=== PATIENT | male | born 1935 | race Caucasian/White ===

== ENCOUNTER 2017-08-18 17:43 | Observation (INO) ==
[2017-08-18] MEDS ORDERED: ASPIRIN 325 MG TABLET PO STA (18:37)
[2017-08-18] MEDS ORDERED: ASPIRIN 325 MG TABLET ONE (18:56)
[2017-08-18 19:05] LABS: Basophils % 0.3 % (0.0-0.8); Eosinophils % 0.1 % (0.00-10.9); Hemoglobin 11.5 GM/DL (14.0-18.0); Immature Granulocytes Absolute 0.55 #; Lymphocytes # 1.4 10*3/uL (1.4-4.0); Lymphocytes % 9.9 % (21.2-54.2); Mean Corpuscular HGB Conc 31.9 GM/DL (32-36); Mean Corpuscular Hemoglobin 28 PG (27-34); Mean Corpuscular Volume 87.6 FL (87-102); Mean Platelet Volume 11.1 FL (9.6-12.0); Monocytes # 2.7 10*3/uL (0.11-0.8); Monocytes % 19.8 % (1.7-12.7); Neutrophils % 65.9 % (38.7-73.9); Platelet Count 216 T/CUMM (130-400); Red Blood Count 4.11 MC/CUMM (3.8-5.5); Red Cell Distribution Width 19.7 % (9.3-17.3); White Blood Count 13.7 T/CUMM (4-12)
[2017-08-18 19:12] LABS: Apearance,Urine Slightly Hazy (Clear); Bilirubin,Urine Negative (Negative); Blood, Urine Moderate mg/dL (Negative); Glucose,Urine (UA) Negative (Negative); Hyaline Casts,Urine 5 /LPF (0-3); Ketones,Urine Negative (Negative); Mucus,Urine Occasional /LPF (Occasional); Nitrite,Urine Negative (Negative); Protein,Urine 100 MG/DL; RBC,Urine 195 /HPF (0-4); Urine Color Amber (Yellow); Urine Specific Gravity 1.018 (1.001-1.035); Urine Urobilinogen < 2.0 EU/DL (0.2-1.0); WBC,Urine 3 /HPF (0-6)
[2017-08-18 19:21] LABS: Albumin 2.6 G/DL (3.4-5.0); Bilirubin,Total 0.5 MG/DL (0.2-1.0); Calcium 8.3 MG/DL (8.5-10.1); Total Protein 6.5 G/DL (6.4-8.3)
[2017-08-18] MEDS ORDERED: ONDANSETRON 4 MG/2 ML VIAL IV PRN (20:12)
[2017-08-18 20:20] LABS: Lymphocytes 13 % (20-55); Platelet Estimate Adequate; Polychromasia Few; Segmented Neutrophils 78 % (50-85); Total Cells Counted 100
[2017-08-18] MEDS ORDERED: ALBUTEROL/IPRATROPIUM 3 ML NEB RESP TX PRN (20:26)
[2017-08-18] MEDS ORDERED: ZALEPLON 5 MG CAPSULE PO PRN (21:00)
[2017-08-18] MEDS: TAMSULOSIN 0.4 MG CAPSULE PO SCH (23:11)
[2017-08-18] MEDS: TEMAZEPAM 15 MG CAPSULE PO SCH (23:11)
[2017-08-18] MEDS: ALPRAZolam 0.5 MG TABLET PO PRN (23:13)
[2017-08-19] MEDS: NITROGLYCERIN 2% OINT 1 INCH/GM PACK TOP SCH ×5 (00:20→17:12)
[2017-08-19] MEDS: MORPHINE 2 MG/1 ML SYRINGE IV PRN ×4 (01:01→22:24)
[2017-08-19] MEDS ORDERED: ALBUTEROL/IPRATROPIUM 3 ML NEB RESP TX PRN (01:08)
[2017-08-19 01:56] LABS: Basophils # 0.1 10*3/uL (0.0-0.2); Basophils % 0.4 % (0.0-0.8); Eosinophils % 0.3 % (0.00-10.9); Hematocrit 34.6 VOL% (42.0-52.0); Immature Granulocytes % 3.8 %; Immature Granulocytes Absolute 0.49 #; Mean Corpuscular HGB Conc 31.8 GM/DL (32-36); Mean Corpuscular Hemoglobin 28 PG (27-34); Mean Corpuscular Volume 87.8 FL (87-102); Mean Platelet Volume 11.3 FL (9.6-12.0); Monocytes # 2.4 10*3/uL (0.11-0.8); Monocytes % 18.2 % (1.7-12.7); Neutrophils # 8.1 10*3/uL (1.4-7.4); Neutrophils % 62.3 % (38.7-73.9); Platelet Count 211 T/CUMM (130-400); Red Blood Count 3.94 MC/CUMM (3.8-5.5); Red Cell Distribution Width 19.5 % (9.3-17.3)
[2017-08-19 02:28] LABS: Alanine Aminotransferase 9 U/L (16-61); Albumin 2.5 G/DL (3.4-5.0); Alkaline Phosphatase 62 U/L (45-117); Aspartate Amino Transferase 10 U/L (0-37); Bilirubin,Total < 0.39 MG/DL (0.2-1.0); Blood Urea Nitrogen 17 MG/DL (7-18); Calcium 7.6 MG/DL (8.5-10.1); Glucose 116 MG/DL (74-106); Osmolality,Calculated 290.7 MOS/KG (273-304); Potassium 4.2 MMOL/L (3.5-5.1); Sodium 145 MMOL/L (136-145); Total Protein 5.6 G/DL (6.4-8.3)
[2017-08-19 02:31] LABS: Lymphocytes 15 % (20-55); Myelocytes 2 %; Segmented Neutrophils 67 % (50-85); Total Cells Counted 100
[2017-08-19 02:32] LABS: Hypochromasia 1+
[2017-08-19 02:33] LABS: Platelet Estimate Normal; Polychromasia Few
[2017-08-19 02:34] LABS: Elliptocytes Few; Microcytosis Slight
[2017-08-19 02:52] LABS: Risk Ratio 7.3; VLDL CHOLESTEROL 30.8 MG/DL
[2017-08-19] MEDS: IPRATROPIUM 500 MCG/2.5 ML NEB RESP TX SCH ×4 (07:00→19:06)
[2017-08-19] MEDS: ALPRAZolam 0.5 MG TABLET PO PRN ×2 (10:18→22:24)
[2017-08-19] MEDS: ASCORBIC ACID 500 MG TABLET PO SCH (10:18)
[2017-08-19] MEDS: PARoxetine 20 MG TABLET PO SCH (10:19)
[2017-08-19] MEDS: ASPIRIN EC 325 MG TABLET PO SCH (10:19)
[2017-08-19] MEDS: predniSONE 20 MG TABLET PO SCH ×2 (10:19→22:24)
[2017-08-19] MEDS: VITAMIN E 400 UNIT CAPSULE PO SCH (10:19)
[2017-08-19] MEDS: PANTOPRAZOLE 40 MG TABLET PO SCH (10:19)
[2017-08-19] MEDS: ENOXAPARIN 40 MG/0.4 ML SYRINGE SUBCUT SCH (10:20)
[2017-08-19] MEDS: TAMSULOSIN 0.4 MG CAPSULE PO SCH ×2 (10:20→22:24)
[2017-08-19 15:19] LABS: Apearance,Urine CLEAR (Clear); Bilirubin,Urine Negative (Negative); Blood, Urine Large mg/dL (Negative); Glucose,Urine (UA) Negative (Negative); Ketones,Urine Negative (Negative); Mucus,Urine Occasional /LPF (Occasional); Nitrite,Urine Negative (Negative); Protein,Urine Negative; RBC,Urine 75 /HPF (0-4); Urine Color Yellow (Yellow); Urine Specific Gravity 1.015 (1.001-1.035); WBC,Urine 5 /HPF (0-6)
[2017-08-19] MEDS: TEMAZEPAM 15 MG CAPSULE PO SCH (22:23)
[2017-08-20] MEDS: NITROGLYCERIN 2% OINT 1 INCH/GM PACK TOP SCH ×3 (00:05→12:40)
[2017-08-20 06:00] LABS: Basophils % 0.3 % (0.0-0.8); Eosinophils % 0.1 % (0.00-10.9); Hemoglobin 10.2 GM/DL (14.0-18.0); Immature Granulocytes % 2.6 %; Immature Granulocytes Absolute 0.37 #; Lymphocytes # 1.4 10*3/uL (1.4-4.0); Lymphocytes % 9.7 % (21.2-54.2); Mean Corpuscular HGB Conc 30.9 GM/DL (32-36); Mean Corpuscular Hemoglobin 28 PG (27-34); Mean Corpuscular Volume 89.9 FL (87-102); Monocytes # 1.5 10*3/uL (0.11-0.8); Monocytes % 10.3 % (1.7-12.7); Platelet Count 218 T/CUMM (130-400); Red Blood Count 3.67 MC/CUMM (3.8-5.5); Red Cell Distribution Width 19.1 % (9.3-17.3); White Blood Count 14.2 T/CUMM (4-12)
[2017-08-20 06:33] LABS: Calcium 7.9 MG/DL (8.5-10.1); Osmolality,Calculated 287.1 MOS/KG (273-304); Potassium 4.5 MMOL/L (3.5-5.1)
[2017-08-20] MEDS: IPRATROPIUM 500 MCG/2.5 ML NEB RESP TX SCH ×3 (07:27→14:19)
[2017-08-20] MEDS: VITAMIN E 400 UNIT CAPSULE PO SCH (09:41)
[2017-08-20] MEDS: PARoxetine 20 MG TABLET PO SCH (09:41)
[2017-08-20] MEDS: TAMSULOSIN 0.4 MG CAPSULE PO SCH (09:41)
[2017-08-20] MEDS: ENOXAPARIN 40 MG/0.4 ML SYRINGE SUBCUT SCH (09:41)
[2017-08-20] MEDS: ASPIRIN EC 325 MG TABLET PO SCH (09:41)
[2017-08-20] MEDS: PANTOPRAZOLE 40 MG TABLET PO SCH (09:42)
[2017-08-20] MEDS: predniSONE 20 MG TABLET PO SCH (09:42)
[2017-08-20] MEDS: ASCORBIC ACID 500 MG TABLET PO SCH (09:42)
[2017-08-20] MEDS: ALPRAZolam 0.5 MG TABLET PO PRN (09:43)
[2017-08-20 16:29] VITALS: BP 128/66
== END 2017-08-20 17:40 | disposition home or self-care (01) ==
LOC: EDUNIT# → EDBD → N.ED 17:43 → N.EDINP 17:43 → N.TELEN 22:08 → N.5E 08-19 17:58
PROVIDERS: ADMIT Internal Medicine; ATTEND Internal Medicine

== ENCOUNTER 2018-05-30 09:30 | Inpatient (IN) ==
[2018-05-30] MEDS ORDERED: ALBUTEROL/IPRATROPIUM 3 ML NEB RESP TX STA (09:49)
[2018-05-30] MEDS ORDERED: methylPREDNISolone SOD SUC 125 MG/2 ML VIAL IV STA (09:49)
[2018-05-30] MEDS ORDERED: LEVOFLOXACIN INJ 750 MG in PREMIX 1 EACH IV STA (09:49)
[2018-05-30] MEDS ORDERED: ONDANSETRON 4 MG/2 ML VIAL IV STA (09:49)
[2018-05-30 10:02] LABS: Basophils % 0.3 % (0.0-0.8); Eosinophils % 0.2 % (0.00-10.9); Hemoglobin 10.9 GM/DL (14.0-18.0); Immature Granulocytes % 1.7 %; Immature Granulocytes Absolute 0.16 #; Lymphocytes # 1.5 10*3/uL (1.4-4.0); Lymphocytes % 16.4 % (21.2-54.2); Mean Corpuscular HGB Conc 30.3 GM/DL (32-36); Mean Corpuscular Hemoglobin 26 PG (27-34); Mean Corpuscular Volume 86.7 FL (87-102); Mean Platelet Volume 12.2 FL (9.6-12.0); Monocytes # 1.1 10*3/uL (0.11-0.8); Monocytes % 11.7 % (1.7-12.7); Neutrophils # 6.4 10*3/uL (1.4-7.4); Neutrophils % 69.7 % (38.7-73.9); Platelet Count 135 T/CUMM (130-400); Red Blood Count 4.15 MC/CUMM (3.8-5.5); Red Cell Distribution Width 16.2 % (9.3-17.3); White Blood Count 9.2 T/CUMM (4-12)
[2018-05-30 10:08] LABS: INR 0.9; PT Patient Result 10.3 SECS; Partial Thromboplastin Time 26.2 SECS (0-40)
[2018-05-30 10:21] LABS: Alanine Aminotransferase 12 U/L (16-61); Alkaline Phosphatase 73 U/L (45-117); Aspartate Amino Transferase 11 U/L (0-37); Bilirubin,Total < 0.39 MG/DL (0.2-1.0); Calcium 9.1 MG/DL (8.5-10.1); Total Protein 7.4 G/DL (6.4-8.3)
[2018-05-30 10:22] LABS: Blood Urea Nitrogen 26 MG/DL (7-18); Glucose 106 MG/DL (74-106); Osmolality,Calculated 277.8 MOS/KG (273-304); Potassium 4.2 MMOL/L (3.5-5.1); Sodium 137 MMOL/L (136-145); Troponin I < 0.015 NG/ML (0.00-0.045)
[2018-05-30] MEDS ORDERED: LEVOFLOXACIN INJ 750 MG in PREMIX 1 EACH IV SCH (12:30)
[2018-05-30] MEDS ORDERED: ONDANSETRON 4 MG/2 ML VIAL IV PRN (13:34)
[2018-05-30] MEDS ORDERED: ACETAMINOPHEN 325 MG TABLET PO PRN (13:34)
[2018-05-30] MEDS ORDERED: guaiFENesin/DM ER 600-30 MG TABLET PO PRN (13:34)
[2018-05-30] MEDS ORDERED: ZALEPLON 5 MG CAPSULE PO PRN (13:34)
[2018-05-30] MEDS ORDERED: NICOTINE 21 MG/24 HR PATCH TRANSDERM PRN (13:34)
[2018-05-30] MEDS ORDERED: ALBUTEROL 2.5 MG/3 ML NEB RESP TX PRN (13:36)
[2018-05-30] MEDS: ALBUTEROL/IPRATROPIUM 3 ML NEB RESP TX SCH ×2 (14:20→19:01)
[2018-05-30] MEDS: LEVOFLOXACIN INJ 750 MG in PREMIX 1 EACH IV SCH (14:42)
[2018-05-30 14:54] LABS: ABG Base Excess 9.8 MMOL/L (-2.5-2.5); ABG HCO3 33.4 MMOL/L (20-26); ABG Oxygen Saturation 88.1 % (95-100); ABG PH 7.314 (7.35-7.45); ABG TCO2 35.7 MMOL/L (23-27)
[2018-05-30 15:09] LABS: ABG PCO2 77.3 MM HG (35-48)
[2018-05-30] MEDS: HEPARIN 5,000 UNIT/1 ML VIAL SUBCUT SCH (15:44)
[2018-05-30] MEDS ORDERED: IPRATROPIUM 500 MCG/2.5 ML NEB RESP TX PRN (17:00)
[2018-05-30] MEDS: methylPREDNISolone SOD SUC 40 MG/1 ML VIAL IV SCH (17:39)
[2018-05-30] MEDS ORDERED: [UNRECOGNIZED DRUG - OTHER] PO SCH (21:00)
[2018-05-30] MEDS: BUDESONIDE/FORMOTEROL 160-4.5 INHALER 6 GM INH SCH (21:40)
[2018-05-30] MEDS: DOCUSATE SODIUM 100 MG CAPSULE PO SCH (21:40)
[2018-05-30] MEDS: TAMSULOSIN 0.4 MG CAPSULE PO SCH (21:40)
[2018-05-30] MEDS: LATANOPROST 0.005% OPH SOLN 2.5 ML BOTTLE LEFT EYE SCH (21:41)
[2018-05-30] MEDS: DONEPEZIL 5 MG TABLET PO SCH (21:41)
[2018-05-30] MEDS: guaiFENesin/DM ER 600-30 MG TABLET PO SCH (21:41)
[2018-05-30] MEDS: ALPRAZolam 0.5 MG TABLET PO SCH (21:41)
[2018-05-31] MEDS: ALBUTEROL/IPRATROPIUM 3 ML NEB RESP TX SCH ×4 (00:47→19:29)
[2018-05-31] MEDS: HEPARIN 5,000 UNIT/1 ML VIAL SUBCUT SCH ×4 (00:57→23:55)
[2018-05-31] MEDS: methylPREDNISolone SOD SUC 40 MG/1 ML VIAL IV SCH ×3 (05:06→20:39)
[2018-05-31 06:00] LABS: Basophils % 0.3 % (0.0-0.8); Hematocrit 34.4 VOL% (42.0-52.0); Hemoglobin 10.4 GM/DL (14.0-18.0); Immature Granulocytes % 5.9 %; Immature Granulocytes Absolute 0.34 #; Lymphocytes # 0.7 10*3/uL (1.4-4.0); Lymphocytes % 12.7 % (21.2-54.2); Mean Corpuscular HGB Conc 30.2 GM/DL (32-36); Mean Corpuscular Hemoglobin 26 PG (27-34); Mean Corpuscular Volume 86.6 FL (87-102); Mean Platelet Volume 12.2 FL (9.6-12.0); Monocytes # 0.2 10*3/uL (0.11-0.8); Neutrophils # 4.5 10*3/uL (1.4-7.4); Neutrophils % 78.1 % (38.7-73.9); Platelet Count 137 T/CUMM (130-400); Red Blood Count 3.97 MC/CUMM (3.8-5.5); White Blood Count 5.7 T/CUMM (4-12)
[2018-05-31 06:35] LABS: Albumin 2.7 G/DL (3.4-5.0); Bilirubin,Total 0.8 MG/DL (0.2-1.0); Calcium 8.7 MG/DL (8.5-10.1); Osmolality,Calculated 280.8 MOS/KG (273-304); Potassium 4.7 MMOL/L (3.5-5.1); Total Protein 6.7 G/DL (6.4-8.3)
[2018-05-31 07:50] LABS: ABG Base Excess 11.8 MMOL/L (-2.5-2.5); ABG HCO3 35.3 MMOL/L (20-26); ABG PH 7.368 (7.35-7.45); ABG PO2 50.9 MM HG (80-95); ABG TCO2 36.3 MMOL/L (23-27); Allen Test Positive
[2018-05-31 09:45] LABS: Hypochromasia 2+; Lymphocytes 12 % (20-55); Polychromasia Slight; Segmented Neutrophils 86 % (50-85); Total Cells Counted 100
[2018-05-31 09:46] LABS: Platelet Estimate Decreased; Schistocytes Slight
[2018-05-31] MEDS: BUDESONIDE/FORMOTEROL 160-4.5 INHALER 6 GM INH SCH ×2 (09:48→20:40)
[2018-05-31] MEDS: TAMSULOSIN 0.4 MG CAPSULE PO SCH ×2 (09:50→20:39)
[2018-05-31] MEDS: buPROPion SR 150 MG TABLET PO SCH (09:50)
[2018-05-31] MEDS: amLODIPine 5 MG TABLET PO SCH (09:50)
[2018-05-31] MEDS: ALPRAZolam 0.5 MG TABLET PO SCH ×3 (09:50→20:38)
[2018-05-31] MEDS: DOCUSATE SODIUM 100 MG CAPSULE PO SCH ×2 (09:50→20:38)
[2018-05-31] MEDS: PANTOPRAZOLE 40 MG TABLET PO SCH (09:50)
[2018-05-31] MEDS: ASPIRIN CHEW 81 MG TABLET PO SCH (09:51)
[2018-05-31] MEDS: guaiFENesin/DM ER 600-30 MG TABLET PO SCH ×2 (09:51→20:39)
[2018-05-31] MEDS: FINASTERIDE 5 MG TABLET PO SCH (09:51)
[2018-05-31 10:35] LABS: Apearance,Urine CLEAR (Clear); Bilirubin,Urine Negative (Negative); Blood, Urine Negative (Negative); Glucose,Urine (UA) Negative (Negative); Ketones,Urine Negative (Negative); Mucus,Urine Occasional /LPF (Occasional); Nitrite,Urine Negative (Negative); Protein,Urine Negative; RBC,Urine 2 /HPF (0-4); Squamous Epithelial Cell,Urine Occasional /HPF (0-10); Urine Color Yellow (Yellow); Urine Specific Gravity 1.023 (1.001-1.035); Urine Urobilinogen < 2.0 EU/DL (0.2-1.0); WBC,Urine 1 /HPF (0-6)
[2018-05-31] MEDS: LEVOFLOXACIN INJ 750 MG in PREMIX 1 EACH IV SCH (12:02)
[2018-05-31] MEDS: DONEPEZIL 5 MG TABLET PO SCH (20:39)
[2018-05-31] MEDS: LATANOPROST 0.005% OPH SOLN 2.5 ML BOTTLE LEFT EYE SCH (20:39)
[2018-06-01] MEDS: ALBUTEROL/IPRATROPIUM 3 ML NEB RESP TX SCH ×4 (00:15→19:43)
[2018-06-01] MEDS ORDERED: predniSONE 20 MG TABLET PO ONE (01:17)
[2018-06-01 05:06] LABS: ABG PCO2 69.4 MM HG (35-48)
[2018-06-01 05:29] LABS: Basophils % 0.2 % (0.0-0.8); Eosinophils % 0.1 % (0.00-10.9); Hematocrit 33.2 VOL% (42.0-52.0); Hemoglobin 10.1 GM/DL (14.0-18.0); Immature Granulocytes % 2.1 %; Immature Granulocytes Absolute 0.33 #; Lymphocytes # 1.4 10*3/uL (1.4-4.0); Lymphocytes % 9.1 % (21.2-54.2); Mean Corpuscular HGB Conc 30.4 GM/DL (32-36); Mean Corpuscular Hemoglobin 26 PG (27-34); Mean Corpuscular Volume 85.8 FL (87-102); Mean Platelet Volume 12.4 FL (9.6-12.0); Monocytes # 3.2 10*3/uL (0.11-0.8); Monocytes % 20.4 % (1.7-12.7); Neutrophils # 10.6 10*3/uL (1.4-7.4); Neutrophils % 68.1 % (38.7-73.9); Platelet Count 139 T/CUMM (130-400); Red Blood Count 3.87 MC/CUMM (3.8-5.5); Red Cell Distribution Width 15.9 % (9.3-17.3); White Blood Count 15.5 T/CUMM (4-12)
[2018-06-01 05:49] LABS: Albumin 2.8 G/DL (3.4-5.0); Bilirubin,Total 0.6 MG/DL (0.2-1.0); Calcium 8.5 MG/DL (8.5-10.1); Potassium 3.9 MMOL/L (3.5-5.1); Total Protein 6.5 G/DL (6.4-8.3)
[2018-06-01 06:02] LABS: Hypochromasia 1+; Lymphocytes 9 % (20-55); Ovalocytes Slight; Platelet Estimate Normal; Segmented Neutrophils 77 % (50-85); Total Cells Counted 100
[2018-06-01] MEDS: HEPARIN 5,000 UNIT/1 ML VIAL SUBCUT SCH ×2 (06:27→16:36)
[2018-06-01] MEDS ORDERED: ERGOCALCIFEROL 50,000 UNIT CAPSULE PO SCH (09:00)
[2018-06-01] MEDS: ASPIRIN CHEW 81 MG TABLET PO SCH (10:07)
[2018-06-01] MEDS: DOCUSATE SODIUM 100 MG CAPSULE PO SCH ×2 (10:08→21:39)
[2018-06-01] MEDS: guaiFENesin/DM ER 600-30 MG TABLET PO SCH ×2 (10:08→21:39)
[2018-06-01] MEDS: TAMSULOSIN 0.4 MG CAPSULE PO SCH ×2 (10:08→21:39)
[2018-06-01] MEDS: amLODIPine 5 MG TABLET PO SCH (10:08)
[2018-06-01] MEDS: PANTOPRAZOLE 40 MG TABLET PO SCH (10:09)
[2018-06-01] MEDS: BUDESONIDE/FORMOTEROL 160-4.5 INHALER 6 GM INH SCH ×2 (10:09→21:40)
[2018-06-01] MEDS: FINASTERIDE 5 MG TABLET PO SCH (10:09)
[2018-06-01] MEDS: ALPRAZolam 0.5 MG TABLET PO SCH ×3 (10:10→21:39)
[2018-06-01] MEDS: buPROPion SR 150 MG TABLET PO SCH (10:10)
[2018-06-01] MEDS: predniSONE 20 MG TABLET PO SCH (10:11)
[2018-06-01] MEDS: CEFDINIR 300 MG CAPSULE PO SCH ×2 (10:40→21:39)
[2018-06-01] MEDS: DONEPEZIL 5 MG TABLET PO SCH (21:39)
[2018-06-01] MEDS: LATANOPROST 0.005% OPH SOLN 2.5 ML BOTTLE LEFT EYE SCH (21:40)
[2018-06-02] MEDS: ALBUTEROL/IPRATROPIUM 3 ML NEB RESP TX SCH ×4 (00:22→19:33)
[2018-06-02] MEDS: HEPARIN 5,000 UNIT/1 ML VIAL SUBCUT SCH ×3 (01:21→17:33)
[2018-06-02 06:39] LABS: Basophils % 0.1 % (0.0-0.8); Hematocrit 33.6 VOL% (42.0-52.0); Hemoglobin 10.3 GM/DL (14.0-18.0); Immature Granulocytes % 5.1 %; Immature Granulocytes Absolute 0.42 #; Lymphocytes % 11.8 % (21.2-54.2); Mean Corpuscular HGB Conc 30.7 GM/DL (32-36); Mean Corpuscular Hemoglobin 26 PG (27-34); Mean Corpuscular Volume 85.7 FL (87-102); Mean Platelet Volume 13.4 FL (9.6-12.0); Monocytes # 0.9 10*3/uL (0.11-0.8); Monocytes % 11.2 % (1.7-12.7); Neutrophils % 71.8 % (38.7-73.9); Platelet Count 127 T/CUMM (130-400); Red Blood Count 3.92 MC/CUMM (3.8-5.5); Red Cell Distribution Width 16.3 % (9.3-17.3); White Blood Count 8.3 T/CUMM (4-12)
[2018-06-02 06:56] LABS: Alanine Aminotransferase 9 U/L (16-61); Albumin 2.5 G/DL (3.4-5.0); Alkaline Phosphatase 52 U/L (45-117); Aspartate Amino Transferase 9 U/L (0-37); Bilirubin,Total < 0.39 MG/DL (0.2-1.0); Blood Urea Nitrogen 36 MG/DL (7-18); Calcium 8.2 MG/DL (8.5-10.1); Glucose 97 MG/DL (74-106); Osmolality,Calculated 277.1 MOS/KG (273-304); Potassium 4.5 MMOL/L (3.5-5.1); Sodium 135 MMOL/L (136-145); Total Protein 6.8 G/DL (6.4-8.3)
[2018-06-02 07:21] LABS: Anisocytosis Slight; Lymphocytes 15 % (20-55); Platelet Estimate Adequate; Poikilocytosis Slight; Segmented Neutrophils 74 % (50-85); Total Cells Counted 100
[2018-06-02 07:22] LABS: Giant Platelets Few; Hypochromasia Slight
[2018-06-02] MEDS: DOCUSATE SODIUM 100 MG CAPSULE PO SCH ×2 (08:32→22:12)
[2018-06-02] MEDS: ALPRAZolam 0.5 MG TABLET PO SCH ×3 (08:32→22:12)
[2018-06-02] MEDS: predniSONE 20 MG TABLET PO SCH (08:32)
[2018-06-02] MEDS: guaiFENesin/DM ER 600-30 MG TABLET PO SCH ×2 (08:32→22:12)
[2018-06-02] MEDS: TAMSULOSIN 0.4 MG CAPSULE PO SCH ×2 (08:32→22:12)
[2018-06-02] MEDS: ASPIRIN CHEW 81 MG TABLET PO SCH (08:33)
[2018-06-02] MEDS: amLODIPine 5 MG TABLET PO SCH (08:33)
[2018-06-02] MEDS: FINASTERIDE 5 MG TABLET PO SCH (08:33)
[2018-06-02] MEDS: buPROPion SR 150 MG TABLET PO SCH (08:33)
[2018-06-02] MEDS: CEFDINIR 300 MG CAPSULE PO SCH ×2 (08:33→22:12)
[2018-06-02] MEDS: BUDESONIDE/FORMOTEROL 160-4.5 INHALER 6 GM INH SCH ×2 (08:33→22:13)
[2018-06-02] MEDS: PANTOPRAZOLE 40 MG TABLET PO SCH (08:33)
[2018-06-02] MEDS: LATANOPROST 0.005% OPH SOLN 2.5 ML BOTTLE LEFT EYE SCH (22:11)
[2018-06-02] MEDS: DONEPEZIL 5 MG TABLET PO SCH (22:12)
[2018-06-03] MEDS: ALBUTEROL/IPRATROPIUM 3 ML NEB RESP TX SCH ×2 (00:23→07:50)
[2018-06-03] MEDS: HEPARIN 5,000 UNIT/1 ML VIAL SUBCUT SCH ×2 (00:37→10:14)
[2018-06-03 07:43] VITALS: BP 123/66
[2018-06-03] MEDS: CEFDINIR 300 MG CAPSULE PO SCH (10:13)
[2018-06-03] MEDS: amLODIPine 5 MG TABLET PO SCH (10:13)
[2018-06-03] MEDS: buPROPion SR 150 MG TABLET PO SCH (10:13)
[2018-06-03] MEDS: TAMSULOSIN 0.4 MG CAPSULE PO SCH (10:13)
[2018-06-03] MEDS: predniSONE 20 MG TABLET PO SCH (10:13)
[2018-06-03] MEDS: guaiFENesin/DM ER 600-30 MG TABLET PO SCH (10:13)
[2018-06-03] MEDS: DOCUSATE SODIUM 100 MG CAPSULE PO SCH (10:14)
[2018-06-03] MEDS: ALPRAZolam 0.5 MG TABLET PO SCH (10:14)
[2018-06-03] MEDS: ASPIRIN CHEW 81 MG TABLET PO SCH (10:14)
[2018-06-03] MEDS: PANTOPRAZOLE 40 MG TABLET PO SCH (10:14)
[2018-06-03] MEDS: BUDESONIDE/FORMOTEROL 160-4.5 INHALER 6 GM INH SCH (10:17)
[2018-06-03] MEDS: FINASTERIDE 5 MG TABLET PO SCH (10:17)
== END 2018-06-03 11:55 | DRG 194 ==
LOC: EDBD → EDUNIT# → N.ED 09:30 → N.EDINP 12:13 → N.2E 13:57
PROVIDERS: ADMIT Internal Medicine; ATTEND Internal Medicine

== ENCOUNTER 2018-08-03 17:38 | Inpatient (IN) ==
[2018-08-03] MEDS ORDERED: SODIUM CHLORIDE 0.9% 1,000 ML IV STA ×2 (18:29→19:41)
[2018-08-03 18:50] LABS: Basophils # 0.1 10*3/uL (0.0-0.2); Basophils % 0.3 % (0.0-0.8); Hematocrit 40.1 VOL% (42.0-52.0); Hemoglobin 12.1 GM/DL (14.0-18.0); Immature Granulocytes % 4.1 %; Immature Granulocytes Absolute 1.56 #; Lymphocytes # 0.4 10*3/uL (1.4-4.0); Lymphocytes % 1.1 % (21.2-54.2); Mean Corpuscular HGB Conc 30.2 GM/DL (32-36); Mean Corpuscular Hemoglobin 26 PG (27-34); Mean Corpuscular Volume 87.6 FL (87-102); Mean Platelet Volume 11.4 FL (9.6-12.0); Monocytes # 4.9 10*3/uL (0.11-0.8); Monocytes % 12.7 % (1.7-12.7); Neutrophils # 31.3 10*3/uL (1.4-7.4); Neutrophils % 81.8 % (38.7-73.9); Platelet Count 120 T/CUMM (130-400); Red Blood Count 4.58 MC/CUMM (3.8-5.5); Red Cell Distribution Width 15.7 % (9.3-17.3); White Blood Count 38.2 T/CUMM (4-12)
[2018-08-03 19:09] LABS: Alanine Aminotransferase 14 U/L (16-61); Albumin 3.1 G/DL (3.4-5.0); Alkaline Phosphatase 79 U/L (45-117); Aspartate Amino Transferase 14 U/L (0-37); Blood Urea Nitrogen 14 MG/DL (7-18); Calcium 8.9 MG/DL (8.5-10.1); Glucose 108 MG/DL (74-106); Osmolality,Calculated 276.7 MOS/KG (273-304); Potassium 3.9 MMOL/L (3.5-5.1); Sodium 138 MMOL/L (136-145); Total Protein 7.1 G/DL (6.4-8.3)
[2018-08-03] MEDS ORDERED: VANCOMYCIN INJ 1,000 MG in SODIUM CHLORIDE 0.9% 250 ML IV STA (19:40)
[2018-08-03] MEDS ORDERED: CEFEPIME 2,000 MG in SODIUM CHLORIDE 0.9% 100 ML IV STA (19:40)
[2018-08-03 19:57] LABS: Apearance,Urine Slightly Hazy (Clear); Blood, Urine Negative (Negative); Glucose,Urine (UA) Negative (Negative); Hyaline Casts,Urine 51 /LPF (0-3); Ketones,Urine Negative (Negative); Mucus,Urine Many /LPF (Occasional); Nitrite,Urine Negative (Negative); Protein,Urine 30 MG/DL; RBC,Urine 3 /HPF (0-4); Squamous Epithelial Cell,Urine Occasional /HPF (0-10); Urine Color Amber (Yellow); Urine Specific Gravity 1.018 (1.001-1.035); WBC,Urine 3 /HPF (0-6)
[2018-08-03 19:58] LABS: Lymphocytes 6 % (20-55); Segmented Neutrophils 80 % (50-85); Total Cells Counted 100
[2018-08-03 19:58] LABS: Bilirubin,Urine Small mg/dL (Negative)
[2018-08-03 20:02] LABS: Anisocytosis 1+; Hypochromasia Slight; Poikilocytosis Slight
[2018-08-03 20:03] LABS: Ovalocytes Slight; Platelet Estimate Decreased
[2018-08-03] MEDS ORDERED: ACETAMINOPHEN 325 MG TABLET PO PRN (20:12)
[2018-08-03] MEDS ORDERED: ONDANSETRON 4 MG/2 ML VIAL IV PRN (20:12)
[2018-08-03] MEDS: DEXTROSE 5% NACL 0.9% 1,000 ML IV SCH (21:34)
[2018-08-03] MEDS: DOCUSATE SODIUM 100 MG CAPSULE PO SCH (21:37)
[2018-08-04 04:28] LABS: Basophils # 0.1 10*3/uL (0.0-0.2); Basophils % 0.3 % (0.0-0.8); Hematocrit 31.9 VOL% (42.0-52.0); Hemoglobin 9.5 GM/DL (14.0-18.0); Immature Granulocytes % 3.1 %; Immature Granulocytes Absolute 1.22 #; Lymphocytes % 5.1 % (21.2-54.2); Mean Corpuscular HGB Conc 29.8 GM/DL (32-36); Mean Corpuscular Hemoglobin 27 PG (27-34); Mean Corpuscular Volume 89.4 FL (87-102); Mean Platelet Volume 11.7 FL (9.6-12.0); Monocytes # 5.5 10*3/uL (0.11-0.8); Neutrophils # 30.6 10*3/uL (1.4-7.4); Neutrophils % 77.5 % (38.7-73.9); Platelet Count 148 T/CUMM (130-400); Red Blood Count 3.57 MC/CUMM (3.8-5.5); Red Cell Distribution Width 15.5 % (9.3-17.3); White Blood Count 39.5 T/CUMM (4-12)
[2018-08-04] MEDS ORDERED: ALPRAZolam 0.5 MG TABLET PO ONE (04:36)
[2018-08-04] MEDS: CEFEPIME 2,000 MG in SODIUM CHLORIDE 0.9% 100 ML IV SCH ×3 (05:00→20:44)
[2018-08-04 05:02] LABS: Alanine Aminotransferase < 9 U/L (16-61); Albumin 2.4 G/DL (3.4-5.0); Alkaline Phosphatase 58 U/L (45-117); Aspartate Amino Transferase 11 U/L (0-37); Blood Urea Nitrogen 18 MG/DL (7-18); Calcium 7.7 MG/DL (8.5-10.1); Glucose 99 MG/DL (74-106); Potassium 3.6 MMOL/L (3.5-5.1); Sodium 143 MMOL/L (136-145); Total Protein 5.6 G/DL (6.4-8.3)
[2018-08-04 05:11] LABS: Band Neutrophils 1 % (0-10); Lymphocytes 4 % (20-55); Metamyelocytes 2 %; Platelet Estimate Decreased; Segmented Neutrophils 88 % (50-85); Total Cells Counted 100
[2018-08-04 05:12] LABS: Polychromasia Few
[2018-08-04] MEDS: DEXTROSE 5% NACL 0.9% 1,000 ML IV SCH (05:31)
[2018-08-04] MEDS: DOCUSATE SODIUM 100 MG CAPSULE PO SCH ×2 (08:30→20:51)
[2018-08-04] MEDS: ALPRAZolam 0.5 MG TABLET PO SCH ×3 (08:30→20:51)
[2018-08-04] MEDS ORDERED: PANTOPRAZOLE 40 MG TABLET PO SCH (09:00)
[2018-08-04] MEDS: VANCOMYCIN INJ 1,250 MG in SODIUM CHLORIDE 0.9% 250 ML IV SCH ×2 (10:01→20:45)
[2018-08-04] MEDS ORDERED: MAGNESIUM HYDROXIDE SUSP 30 ML UDCUP PO PRN (10:20)
[2018-08-04] MEDS ORDERED: IPRATROPIUM 500 MCG/2.5 ML NEB RESP TX PRN (10:30)
[2018-08-04] MEDS: BUDESONIDE 0.25 MG/2 ML NEB RESP TX SCH ×2 (10:40→19:31)
[2018-08-04] MEDS: ALBUTEROL/IPRATROPIUM 3 ML NEB RESP TX SCH ×2 (10:40→19:31)
[2018-08-04] MEDS: SODIUM CHLORIDE 0.45% 1,000 ML IV SCH ×3 (11:29→23:17)
[2018-08-04] MEDS: methylPREDNISolone SOD SUC 40 MG/1 ML VIAL IV SCH ×2 (12:38→19:04)
[2018-08-04] MEDS: buPROPion SR 150 MG TABLET PO SCH (12:39)
[2018-08-04] MEDS: ASPIRIN CHEW 81 MG TABLET PO SCH (12:39)
[2018-08-04] MEDS: guaiFENesin/DM ER 600-30 MG TABLET PO SCH ×2 (12:39→20:51)
[2018-08-04] MEDS: SKIN HEALING OINT (AQUAPHOR) 50 GM TUBE TOP SCH (15:52)
[2018-08-04] MEDS: DONEPEZIL 5 MG TABLET PO SCH (20:51)
[2018-08-04] MEDS: LATANOPROST 0.005% OPH SOLN 2.5 ML BOTTLE LEFT EYE SCH (20:51)
[2018-08-05] MEDS: ALBUTEROL/IPRATROPIUM 3 ML NEB RESP TX SCH ×4 (02:26→19:15)
[2018-08-05] MEDS: methylPREDNISolone SOD SUC 40 MG/1 ML VIAL IV SCH ×3 (04:34→20:55)
[2018-08-05] MEDS: CEFEPIME 2,000 MG in SODIUM CHLORIDE 0.9% 100 ML IV SCH ×2 (04:34→12:45)
[2018-08-05 04:36] LABS: Basophils % 0.1 % (0.0-0.8); Hematocrit 31.5 VOL% (42.0-52.0); Hemoglobin 9.4 GM/DL (14.0-18.0); Immature Granulocytes % 2.9 %; Immature Granulocytes Absolute 0.59 #; Lymphocytes # 0.8 10*3/uL (1.4-4.0); Mean Corpuscular HGB Conc 29.8 GM/DL (32-36); Mean Corpuscular Hemoglobin 26 PG (27-34); Mean Platelet Volume 12.3 FL (9.6-12.0); Monocytes # 0.7 10*3/uL (0.11-0.8); Monocytes % 3.2 % (1.7-12.7); Neutrophils # 18.3 10*3/uL (1.4-7.4); Neutrophils % 89.8 % (38.7-73.9); Platelet Count 141 T/CUMM (130-400); Red Blood Count 3.62 MC/CUMM (3.8-5.5); Red Cell Distribution Width 15.4 % (9.3-17.3); White Blood Count 20.4 T/CUMM (4-12)
[2018-08-05 04:51] LABS: Calcium 7.8 MG/DL (8.5-10.1); Osmolality,Calculated 281.5 MOS/KG (273-304); Potassium 3.9 MMOL/L (3.5-5.1)
[2018-08-05 05:07] LABS: Hypochromasia 1+; Lymphocytes 6 % (20-55); Ovalocytes Slight; Platelet Estimate Adequate; Segmented Neutrophils 90 % (50-85); Total Cells Counted 100
[2018-08-05] MEDS ORDERED: MAGNESIUM SULF RIDER 2 GM in PREMIX 1 EACH IV PRN (05:10)
[2018-08-05] MEDS ORDERED: MAGNESIUM SULF RIDER 2 GM in PREMIX 1 EACH IV ONE (06:54)
[2018-08-05] MEDS: BUDESONIDE 0.25 MG/2 ML NEB RESP TX SCH ×2 (07:33→19:15)
[2018-08-05] MEDS: ASPIRIN CHEW 81 MG TABLET PO SCH (09:13)
[2018-08-05] MEDS: ALPRAZolam 0.5 MG TABLET PO SCH ×4 (09:14→21:00)
[2018-08-05] MEDS: buPROPion SR 150 MG TABLET PO SCH (09:14)
[2018-08-05] MEDS: DOCUSATE SODIUM 100 MG CAPSULE PO SCH ×2 (09:14→20:57)
[2018-08-05] MEDS: guaiFENesin/DM ER 600-30 MG TABLET PO SCH ×2 (09:14→20:57)
[2018-08-05] MEDS: SODIUM CHLORIDE 0.45% 1,000 ML IV SCH ×2 (09:22→20:49)
[2018-08-05] MEDS: VANCOMYCIN INJ 1,250 MG in SODIUM CHLORIDE 0.9% 250 ML IV SCH ×2 (09:25→20:59)
[2018-08-05] MEDS: SKIN HEALING OINT (AQUAPHOR) 50 GM TUBE TOP SCH (12:52)
[2018-08-05] MEDS ORDERED: FUROSEMIDE 20 MG/2 ML VIAL IV ONE (20:07)
[2018-08-05] MEDS: CEFEPIME 2,000 MG in SYRINGE 1 EACH IV SCH (20:50)
[2018-08-05] MEDS: DONEPEZIL 5 MG TABLET PO SCH (20:57)
[2018-08-05] MEDS: LATANOPROST 0.005% OPH SOLN 2.5 ML BOTTLE LEFT EYE SCH (21:01)
[2018-08-06] MEDS: ALBUTEROL/IPRATROPIUM 3 ML NEB RESP TX SCH ×4 (01:10→18:59)
[2018-08-06 04:59] LABS: Basophils % 0.2 % (0.0-0.8); Hematocrit 34.1 VOL% (42.0-52.0); Hemoglobin 10.4 GM/DL (14.0-18.0); Immature Granulocytes % 3.4 %; Lymphocytes # 0.8 10*3/uL (1.4-4.0); Lymphocytes % 5.3 % (21.2-54.2); Mean Corpuscular HGB Conc 30.5 GM/DL (32-36); Mean Corpuscular Hemoglobin 26 PG (27-34); Mean Corpuscular Volume 85.9 FL (87-102); Mean Platelet Volume 11.7 FL (9.6-12.0); Monocytes # 1.2 10*3/uL (0.11-0.8); Monocytes % 8.4 % (1.7-12.7); Neutrophils # 12.1 10*3/uL (1.4-7.4); Neutrophils % 82.7 % (38.7-73.9); Platelet Count 155 T/CUMM (130-400); Red Blood Count 3.97 MC/CUMM (3.8-5.5); Red Cell Distribution Width 15.5 % (9.3-17.3); White Blood Count 14.6 T/CUMM (4-12)
[2018-08-06] MEDS: methylPREDNISolone SOD SUC 40 MG/1 ML VIAL IV SCH ×3 (05:02→21:03)
[2018-08-06] MEDS: CEFEPIME 2,000 MG in SYRINGE 1 EACH IV SCH ×3 (05:02→21:00)
[2018-08-06 05:14] LABS: Calcium 7.9 MG/DL (8.5-10.1); Osmolality,Calculated 280.7 MOS/KG (273-304); Potassium 3.8 MMOL/L (3.5-5.1)
[2018-08-06] MEDS: SODIUM CHLORIDE 0.45% 1,000 ML IV SCH ×2 (07:33→18:23)
[2018-08-06] MEDS: BUDESONIDE 0.25 MG/2 ML NEB RESP TX SCH ×2 (07:42→19:00)
[2018-08-06] MEDS: ASPIRIN CHEW 81 MG TABLET PO SCH (08:36)
[2018-08-06] MEDS: SKIN HEALING OINT (AQUAPHOR) 50 GM TUBE TOP SCH (08:36)
[2018-08-06] MEDS: buPROPion SR 150 MG TABLET PO SCH (08:37)
[2018-08-06] MEDS: ALPRAZolam 0.5 MG TABLET PO SCH ×3 (08:37→21:08)
[2018-08-06] MEDS: guaiFENesin/DM ER 600-30 MG TABLET PO SCH ×2 (08:37→21:08)
[2018-08-06] MEDS: DOCUSATE SODIUM 100 MG CAPSULE PO SCH ×2 (08:37→21:08)
[2018-08-06] MEDS: VANCOMYCIN INJ 1,250 MG in SODIUM CHLORIDE 0.9% 250 ML IV SCH ×2 (08:40→21:08)
[2018-08-06] MEDS: FUROSEMIDE 20 MG/2 ML VIAL IV SCH (08:41)
[2018-08-06] MEDS: LATANOPROST 0.005% OPH SOLN 2.5 ML BOTTLE LEFT EYE SCH (21:08)
[2018-08-06] MEDS: DONEPEZIL 5 MG TABLET PO SCH (21:08)
[2018-08-06] MEDS: traZODone 50 MG TABLET PO PRN (22:13)
[2018-08-07] MEDS: ALBUTEROL/IPRATROPIUM 3 ML NEB RESP TX SCH ×4 (00:39→19:26)
[2018-08-07] MEDS: CEFEPIME 2,000 MG in SYRINGE 1 EACH IV SCH ×3 (04:30→19:51)
[2018-08-07] MEDS: methylPREDNISolone SOD SUC 40 MG/1 ML VIAL IV SCH ×3 (04:30→19:52)
[2018-08-07] MEDS: SODIUM CHLORIDE 0.45% 1,000 ML IV SCH ×3 (04:46→19:52)
[2018-08-07] MEDS: BUDESONIDE 0.25 MG/2 ML NEB RESP TX SCH ×2 (07:22→19:26)
[2018-08-07 07:35] LABS: Basophils % 0.3 % (0.0-0.8); Hematocrit 35.8 VOL% (42.0-52.0); Hemoglobin 10.9 GM/DL (14.0-18.0); Immature Granulocytes % 5.3 %; Immature Granulocytes Absolute 0.54 #; Lymphocytes # 0.7 10*3/uL (1.4-4.0); Lymphocytes % 6.7 % (21.2-54.2); Mean Corpuscular HGB Conc 30.4 GM/DL (32-36); Mean Corpuscular Hemoglobin 26 PG (27-34); Mean Corpuscular Volume 84.6 FL (87-102); Mean Platelet Volume 12.3 FL (9.6-12.0); Monocytes # 0.8 10*3/uL (0.11-0.8); Monocytes % 7.5 % (1.7-12.7); Neutrophils # 8.2 10*3/uL (1.4-7.4); Neutrophils % 80.2 % (38.7-73.9); Platelet Count 185 T/CUMM (130-400); Red Blood Count 4.23 MC/CUMM (3.8-5.5); Red Cell Distribution Width 15.1 % (9.3-17.3); White Blood Count 10.3 T/CUMM (4-12)
[2018-08-07 07:57] LABS: Calcium 8.2 MG/DL (8.5-10.1); Osmolality,Calculated 279.7 MOS/KG (273-304); Potassium 3.7 MMOL/L (3.5-5.1)
[2018-08-07 08:28] LABS: Hypochromasia 1+; Lymphocytes 6 % (20-55); Segmented Neutrophils 89 % (50-85); Total Cells Counted 100
[2018-08-07 08:29] LABS: Acanthocytes Few; Microcytosis Slight; Ovalocytes Slight; Platelet Estimate Adequate
[2018-08-07] MEDS: ALPRAZolam 0.5 MG TABLET PO SCH ×3 (08:58→20:01)
[2018-08-07] MEDS: DOCUSATE SODIUM 100 MG CAPSULE PO SCH ×2 (08:58→21:12)
[2018-08-07] MEDS: buPROPion SR 150 MG TABLET PO SCH (08:58)
[2018-08-07] MEDS: ASPIRIN CHEW 81 MG TABLET PO SCH (08:59)
[2018-08-07] MEDS: guaiFENesin/DM ER 600-30 MG TABLET PO SCH ×2 (08:59→21:12)
[2018-08-07] MEDS: SKIN HEALING OINT (AQUAPHOR) 50 GM TUBE TOP SCH (09:00)
[2018-08-07] MEDS: FUROSEMIDE 20 MG/2 ML VIAL IV SCH (09:00)
[2018-08-07] MEDS: VANCOMYCIN INJ 1,250 MG in SODIUM CHLORIDE 0.9% 250 ML IV SCH ×2 (09:04→21:13)
[2018-08-07] MEDS ORDERED: MAGNESIUM SULF RIDER 2 GM in PREMIX 1 EACH IV ONE (09:54)
[2018-08-07] MEDS: amLODIPine 5 MG TABLET PO SCH (11:13)
[2018-08-07] MEDS: DONEPEZIL 5 MG TABLET PO SCH (21:12)
[2018-08-07] MEDS: traZODone 50 MG TABLET PO PRN (21:12)
[2018-08-07] MEDS: LATANOPROST 0.005% OPH SOLN 2.5 ML BOTTLE LEFT EYE SCH (21:12)
[2018-08-08] MEDS: ALBUTEROL/IPRATROPIUM 3 ML NEB RESP TX SCH ×4 (00:56→18:45)
[2018-08-08] MEDS: SODIUM CHLORIDE 0.45% 1,000 ML IV SCH ×2 (02:30→16:42)
[2018-08-08] MEDS: methylPREDNISolone SOD SUC 40 MG/1 ML VIAL IV SCH ×3 (04:07→21:16)
[2018-08-08] MEDS: CEFEPIME 2,000 MG in SYRINGE 1 EACH IV SCH ×3 (04:09→21:15)
[2018-08-08 05:59] LABS: Basophils % 0.1 % (0.0-0.8); Hematocrit 33.8 VOL% (42.0-52.0); Hemoglobin 10.4 GM/DL (14.0-18.0); Immature Granulocytes % 6.7 %; Immature Granulocytes Absolute 0.71 #; Lymphocytes # 1.3 10*3/uL (1.4-4.0); Lymphocytes % 11.8 % (21.2-54.2); Mean Corpuscular HGB Conc 30.8 GM/DL (32-36); Mean Corpuscular Hemoglobin 26 PG (27-34); Mean Corpuscular Volume 83.5 FL (87-102); Mean Platelet Volume 12.7 FL (9.6-12.0); Monocytes # 1.9 10*3/uL (0.11-0.8); Monocytes % 17.4 % (1.7-12.7); Neutrophils # 6.8 10*3/uL (1.4-7.4); Platelet Count 208 T/CUMM (130-400); Red Blood Count 4.05 MC/CUMM (3.8-5.5); Red Cell Distribution Width 15.1 % (9.3-17.3); White Blood Count 10.7 T/CUMM (4-12)
[2018-08-08] MEDS ORDERED: POTASSIUM CHLORIDE 20 MEQ TABLET PO PRN (06:02)
[2018-08-08 06:05] LABS: Calcium 8.1 MG/DL (8.5-10.1); Osmolality,Calculated 279.7 MOS/KG (273-304); Potassium 3.3 MMOL/L (3.5-5.1)
[2018-08-08 06:34] LABS: Band Neutrophils 4 % (0-10); Lymphocytes 11 % (20-55); Myelocytes 1 %; Segmented Neutrophils 68 % (50-85); Total Cells Counted 100
[2018-08-08 06:35] LABS: Acanthocytes 1+; Anisocytosis 1+; Hypochromasia 1+; Ovalocytes 1+; Platelet Estimate Adequate
[2018-08-08] MEDS: BUDESONIDE 0.25 MG/2 ML NEB RESP TX SCH ×2 (07:01→18:45)
[2018-08-08] MEDS: ALPRAZolam 0.5 MG TABLET PO SCH ×3 (08:52→21:18)
[2018-08-08] MEDS: amLODIPine 5 MG TABLET PO SCH (08:52)
[2018-08-08] MEDS: buPROPion SR 150 MG TABLET PO SCH (08:53)
[2018-08-08] MEDS: guaiFENesin/DM ER 600-30 MG TABLET PO SCH ×2 (08:53→21:16)
[2018-08-08] MEDS: SKIN HEALING OINT (AQUAPHOR) 50 GM TUBE TOP SCH (08:53)
[2018-08-08] MEDS: FUROSEMIDE 20 MG/2 ML VIAL IV SCH (08:53)
[2018-08-08] MEDS: ASPIRIN CHEW 81 MG TABLET PO SCH (08:53)
[2018-08-08] MEDS: DOCUSATE SODIUM 100 MG CAPSULE PO SCH ×2 (08:53→21:16)
[2018-08-08] MEDS ORDERED: MAGNESIUM SULF RIDER 2 GM in PREMIX 1 EACH IV ONE (15:37)
[2018-08-08] MEDS ORDERED: POTASSIUM CHLORIDE 20 MEQ TABLET PO ONE (15:37)
[2018-08-08] MEDS: traZODone 50 MG TABLET PO PRN (21:16)
[2018-08-08] MEDS: TAMSULOSIN 0.4 MG CAPSULE PO SCH (21:17)
[2018-08-08] MEDS: POTASSIUM CHLORIDE 20 MEQ TABLET PO SCH (21:17)
[2018-08-08] MEDS: MAGNESIUM OXIDE 400 MG TABLET PO SCH (21:17)
[2018-08-08] MEDS: LATANOPROST 0.005% OPH SOLN 2.5 ML BOTTLE LEFT EYE SCH (21:18)
[2018-08-08] MEDS: DONEPEZIL 5 MG TABLET PO SCH (21:18)
[2018-08-09] MEDS: ALBUTEROL/IPRATROPIUM 3 ML NEB RESP TX SCH ×4 (00:07→19:02)
[2018-08-09] MEDS: SODIUM CHLORIDE 0.45% 1,000 ML IV SCH ×3 (02:48→20:18)
[2018-08-09] MEDS: CEFEPIME 2,000 MG in SYRINGE 1 EACH IV SCH ×3 (04:35→21:12)
[2018-08-09] MEDS: methylPREDNISolone SOD SUC 40 MG/1 ML VIAL IV SCH ×3 (04:35→21:11)
[2018-08-09 05:55] LABS: Basophils % 0.2 % (0.0-0.8); Hematocrit 33.2 VOL% (42.0-52.0); Hemoglobin 10.4 GM/DL (14.0-18.0); Immature Granulocytes % 6.1 %; Immature Granulocytes Absolute 0.84 #; Lymphocytes # 1.2 10*3/uL (1.4-4.0); Lymphocytes % 8.8 % (21.2-54.2); Mean Corpuscular HGB Conc 31.3 GM/DL (32-36); Mean Corpuscular Hemoglobin 26 PG (27-34); Mean Corpuscular Volume 83.2 FL (87-102); Mean Platelet Volume 13.3 FL (9.6-12.0); Monocytes # 1.5 10*3/uL (0.11-0.8); Monocytes % 11.1 % (1.7-12.7); Neutrophils # 10.2 10*3/uL (1.4-7.4); Neutrophils % 73.8 % (38.7-73.9); Platelet Count 184 T/CUMM (130-400); Red Blood Count 3.99 MC/CUMM (3.8-5.5); Red Cell Distribution Width 15.1 % (9.3-17.3); White Blood Count 13.8 T/CUMM (4-12)
[2018-08-09 06:29] LABS: Osmolality,Calculated 281.8 MOS/KG (273-304); Potassium 3.7 MMOL/L (3.5-5.1)
[2018-08-09 06:41] LABS: Anisocytosis 1+; Band Neutrophils 3 % (0-10); Lymphocytes 12 % (20-55); Platelet Estimate Normal; Poikilocytosis 1+; Segmented Neutrophils 76 % (50-85); Total Cells Counted 100
[2018-08-09] MEDS: BUDESONIDE 0.25 MG/2 ML NEB RESP TX SCH ×2 (07:22→19:03)
[2018-08-09] MEDS: TAMSULOSIN 0.4 MG CAPSULE PO SCH ×2 (09:06→21:13)
[2018-08-09] MEDS: FUROSEMIDE 20 MG/2 ML VIAL IV SCH (09:06)
[2018-08-09] MEDS: SKIN HEALING OINT (AQUAPHOR) 50 GM TUBE TOP SCH (09:06)
[2018-08-09] MEDS: VANCOMYCIN INJ 1,250 MG in SODIUM CHLORIDE 0.9% 250 ML IV SCH (09:06)
[2018-08-09] MEDS: guaiFENesin/DM ER 600-30 MG TABLET PO SCH ×2 (09:07→21:13)
[2018-08-09] MEDS: amLODIPine 5 MG TABLET PO SCH (09:07)
[2018-08-09] MEDS: MAGNESIUM OXIDE 400 MG TABLET PO SCH ×2 (09:07→21:13)
[2018-08-09] MEDS: ASPIRIN CHEW 81 MG TABLET PO SCH (09:07)
[2018-08-09] MEDS: buPROPion SR 150 MG TABLET PO SCH (09:07)
[2018-08-09] MEDS: DOCUSATE SODIUM 100 MG CAPSULE PO SCH ×2 (09:07→21:13)
[2018-08-09] MEDS: ALPRAZolam 0.5 MG TABLET PO SCH ×3 (09:07→21:13)
[2018-08-09] MEDS: POTASSIUM CHLORIDE 20 MEQ TABLET PO SCH ×2 (09:07→21:12)
[2018-08-09] MEDS: DONEPEZIL 5 MG TABLET PO SCH (21:12)
[2018-08-09] MEDS: traZODone 50 MG TABLET PO PRN (21:12)
[2018-08-09] MEDS: LATANOPROST 0.005% OPH SOLN 2.5 ML BOTTLE LEFT EYE SCH (21:20)
[2018-08-10] MEDS: ALBUTEROL/IPRATROPIUM 3 ML NEB RESP TX SCH ×4 (00:05→19:38)
[2018-08-10] MEDS: VANCOMYCIN INJ 1,250 MG in SODIUM CHLORIDE 0.9% 250 ML IV SCH ×2 (01:00→22:11)
[2018-08-10 05:44] LABS: Basophils % 0.3 % (0.0-0.8); Hematocrit 32.3 VOL% (42.0-52.0); Hemoglobin 9.9 GM/DL (14.0-18.0); Immature Granulocytes % 5.3 %; Immature Granulocytes Absolute 0.83 #; Lymphocytes # 1.2 10*3/uL (1.4-4.0); Lymphocytes % 7.9 % (21.2-54.2); Mean Corpuscular HGB Conc 30.7 GM/DL (32-36); Mean Corpuscular Hemoglobin 26 PG (27-34); Mean Corpuscular Volume 85.4 FL (87-102); Mean Platelet Volume 11.8 FL (9.6-12.0); Monocytes # 1.4 10*3/uL (0.11-0.8); Monocytes % 8.8 % (1.7-12.7); Neutrophils # 12.1 10*3/uL (1.4-7.4); Neutrophils % 77.7 % (38.7-73.9); Platelet Count 203 T/CUMM (130-400); Red Blood Count 3.78 MC/CUMM (3.8-5.5); Red Cell Distribution Width 15.1 % (9.3-17.3); White Blood Count 15.6 T/CUMM (4-12)
[2018-08-10 06:06] LABS: Band Neutrophils 2 % (0-10); Calcium 7.8 MG/DL (8.5-10.1); Hypochromasia 1+; Lymphocytes 11 % (20-55); Osmolality,Calculated 281.8 MOS/KG (273-304); Ovalocytes Slight; Platelet Estimate Adequate; Potassium 3.9 MMOL/L (3.5-5.1); Segmented Neutrophils 77 % (50-85); Total Cells Counted 100
[2018-08-10] MEDS: methylPREDNISolone SOD SUC 40 MG/1 ML VIAL IV SCH ×2 (06:53→15:31)
[2018-08-10] MEDS: CEFEPIME 2,000 MG in SYRINGE 1 EACH IV SCH ×3 (06:53→23:54)
[2018-08-10] MEDS: BUDESONIDE 0.25 MG/2 ML NEB RESP TX SCH ×2 (07:34→19:38)
[2018-08-10] MEDS: MAGNESIUM OXIDE 400 MG TABLET PO SCH ×2 (08:58→21:23)
[2018-08-10] MEDS: DOCUSATE SODIUM 100 MG CAPSULE PO SCH ×2 (08:58→21:23)
[2018-08-10] MEDS: ASPIRIN CHEW 81 MG TABLET PO SCH (08:58)
[2018-08-10] MEDS: POTASSIUM CHLORIDE 20 MEQ TABLET PO SCH ×2 (08:58→21:24)
[2018-08-10] MEDS: ALPRAZolam 0.5 MG TABLET PO SCH ×3 (08:58→21:24)
[2018-08-10] MEDS: guaiFENesin/DM ER 600-30 MG TABLET PO SCH ×2 (08:58→21:24)
[2018-08-10] MEDS: amLODIPine 5 MG TABLET PO SCH (08:59)
[2018-08-10] MEDS: buPROPion SR 150 MG TABLET PO SCH (08:59)
[2018-08-10] MEDS: SKIN HEALING OINT (AQUAPHOR) 50 GM TUBE TOP SCH (08:59)
[2018-08-10] MEDS: FUROSEMIDE 20 MG/2 ML VIAL IV SCH (08:59)
[2018-08-10] MEDS: TAMSULOSIN 0.4 MG CAPSULE PO SCH ×2 (08:59→21:23)
[2018-08-10] MEDS: DONEPEZIL 5 MG TABLET PO SCH (21:23)
[2018-08-10] MEDS: traZODone 50 MG TABLET PO PRN (21:36)
[2018-08-10] MEDS: LATANOPROST 0.005% OPH SOLN 2.5 ML BOTTLE LEFT EYE SCH (22:11)
[2018-08-11] MEDS: ALBUTEROL/IPRATROPIUM 3 ML NEB RESP TX SCH ×4 (00:40→19:01)
[2018-08-11] MEDS: methylPREDNISolone SOD SUC 40 MG/1 ML VIAL IV SCH ×2 (02:24→20:10)
[2018-08-11 05:44] LABS: Basophils # 0.1 10*3/uL (0.0-0.2); Basophils % 0.4 % (0.0-0.8); Eosinophils % 0.1 % (0.00-10.9); Hematocrit 32.5 VOL% (42.0-52.0); Immature Granulocytes % 7.9 %; Immature Granulocytes Absolute 1.38 #; Lymphocytes # 0.8 10*3/uL (1.4-4.0); Lymphocytes % 4.8 % (21.2-54.2); Mean Corpuscular HGB Conc 30.8 GM/DL (32-36); Mean Corpuscular Hemoglobin 26 PG (27-34); Mean Corpuscular Volume 84.2 FL (87-102); Mean Platelet Volume 12.3 FL (9.6-12.0); Monocytes # 1.9 10*3/uL (0.11-0.8); Monocytes % 10.6 % (1.7-12.7); NRBC # 0.02 10*3/uL; Neutrophils # 13.3 10*3/uL (1.4-7.4); Neutrophils % 76.2 % (38.7-73.9); Platelet Count 219 T/CUMM (130-400); Red Blood Count 3.86 MC/CUMM (3.8-5.5); Red Cell Distribution Width 15.6 % (9.3-17.3); White Blood Count 17.5 T/CUMM (4-12)
[2018-08-11 05:52] LABS: Albumin 2.2 G/DL (3.4-5.0); Bilirubin,Total 0.4 MG/DL (0.2-1.0); Calcium 7.9 MG/DL (8.5-10.1); Osmolality,Calculated 283.1 MOS/KG (273-304); Potassium 4.2 MMOL/L (3.5-5.1); Total Protein 5.7 G/DL (6.4-8.3)
[2018-08-11 06:14] LABS: Band Neutrophils 1 % (0-10); Hypochromasia 1+; Lymphocytes 5 % (20-55); Platelet Estimate Adequate; Segmented Neutrophils 85 % (50-85); Total Cells Counted 100
[2018-08-11] MEDS: BUDESONIDE 0.25 MG/2 ML NEB RESP TX SCH ×2 (06:55→19:02)
[2018-08-11] MEDS: CEFEPIME 2,000 MG in SYRINGE 1 EACH IV SCH (08:05)
[2018-08-11] MEDS: MAGNESIUM OXIDE 400 MG TABLET PO SCH ×2 (08:08→20:09)
[2018-08-11] MEDS: ALPRAZolam 0.5 MG TABLET PO SCH ×3 (08:08→20:09)
[2018-08-11] MEDS: POTASSIUM CHLORIDE 20 MEQ TABLET PO SCH ×2 (08:08→20:09)
[2018-08-11] MEDS: ASPIRIN CHEW 81 MG TABLET PO SCH (08:08)
[2018-08-11] MEDS: amLODIPine 5 MG TABLET PO SCH (08:08)
[2018-08-11] MEDS: FUROSEMIDE 20 MG/2 ML VIAL IV SCH (08:08)
[2018-08-11] MEDS: TAMSULOSIN 0.4 MG CAPSULE PO SCH ×2 (08:08→20:09)
[2018-08-11] MEDS: buPROPion SR 150 MG TABLET PO SCH (08:08)
[2018-08-11] MEDS: guaiFENesin/DM ER 600-30 MG TABLET PO SCH ×2 (08:08→20:09)
[2018-08-11] MEDS: DOCUSATE SODIUM 100 MG CAPSULE PO SCH ×2 (08:08→20:09)
[2018-08-11] MEDS: SKIN HEALING OINT (AQUAPHOR) 50 GM TUBE TOP SCH (08:09)
[2018-08-11] MEDS ORDERED: CEFEPIME 2,000 MG in SYRINGE 1 EACH IV SCH (14:30)
[2018-08-11] MEDS: DONEPEZIL 5 MG TABLET PO SCH (20:09)
[2018-08-11] MEDS: LATANOPROST 0.005% OPH SOLN 2.5 ML BOTTLE LEFT EYE SCH (21:05)
[2018-08-12] MEDS: ALBUTEROL/IPRATROPIUM 3 ML NEB RESP TX SCH ×4 (00:02→19:40)
[2018-08-12 05:14] LABS: Basophils % 0.3 % (0.0-0.8); Eosinophils % 0.1 % (0.00-10.9); Hematocrit 33.5 VOL% (42.0-52.0); Hemoglobin 10.3 GM/DL (14.0-18.0); Immature Granulocytes % 8.2 %; Immature Granulocytes Absolute 1.25 #; Lymphocytes % 6.8 % (21.2-54.2); Mean Corpuscular HGB Conc 30.7 GM/DL (32-36); Mean Corpuscular Hemoglobin 26 PG (27-34); Mean Corpuscular Volume 84.8 FL (87-102); Mean Platelet Volume 11.3 FL (9.6-12.0); Monocytes # 1.5 10*3/uL (0.11-0.8); Monocytes % 9.9 % (1.7-12.7); Neutrophils # 11.4 10*3/uL (1.4-7.4); Neutrophils % 74.7 % (38.7-73.9); Platelet Count 209 T/CUMM (130-400); Red Blood Count 3.95 MC/CUMM (3.8-5.5); Red Cell Distribution Width 15.7 % (9.3-17.3); White Blood Count 15.2 T/CUMM (4-12)
[2018-08-12 05:42] LABS: Lymphocytes 5 % (20-55); Segmented Neutrophils 88 % (50-85); Total Cells Counted 100
[2018-08-12 05:43] LABS: Hypochromasia 1+; Ovalocytes Slight; Platelet Estimate Adequate
[2018-08-12 06:43] LABS: Potassium 4.8 MMOL/L (3.5-5.1)
[2018-08-12] MEDS: BUDESONIDE 0.25 MG/2 ML NEB RESP TX SCH ×2 (07:00→19:40)
[2018-08-12] MEDS: ASPIRIN CHEW 81 MG TABLET PO SCH (08:59)
[2018-08-12] MEDS: MAGNESIUM OXIDE 400 MG TABLET PO SCH ×2 (08:59→21:15)
[2018-08-12] MEDS: DOCUSATE SODIUM 100 MG CAPSULE PO SCH ×2 (08:59→21:15)
[2018-08-12] MEDS: ALPRAZolam 0.5 MG TABLET PO SCH ×3 (08:59→21:14)
[2018-08-12] MEDS: TAMSULOSIN 0.4 MG CAPSULE PO SCH ×2 (08:59→21:15)
[2018-08-12] MEDS: amLODIPine 5 MG TABLET PO SCH (09:00)
[2018-08-12] MEDS: buPROPion SR 150 MG TABLET PO SCH (09:00)
[2018-08-12] MEDS: guaiFENesin/DM ER 600-30 MG TABLET PO SCH ×2 (09:00→21:14)
[2018-08-12] MEDS: FUROSEMIDE 20 MG/2 ML VIAL IV SCH (09:00)
[2018-08-12] MEDS: POTASSIUM CHLORIDE 20 MEQ TABLET PO SCH ×2 (09:00→21:15)
[2018-08-12] MEDS: methylPREDNISolone SOD SUC 40 MG/1 ML VIAL IV SCH ×2 (09:01→20:37)
[2018-08-12] MEDS: SKIN HEALING OINT (AQUAPHOR) 50 GM TUBE TOP SCH (09:02)
[2018-08-12] MEDS: traZODone 50 MG TABLET PO PRN (21:14)
[2018-08-12] MEDS: DONEPEZIL 5 MG TABLET PO SCH (21:14)
[2018-08-12] MEDS: LATANOPROST 0.005% OPH SOLN 2.5 ML BOTTLE LEFT EYE SCH (21:19)
[2018-08-13] MEDS: ALBUTEROL/IPRATROPIUM 3 ML NEB RESP TX SCH ×3 (01:00→12:03)
[2018-08-13 05:00] LABS: Basophils % 0.2 % (0.0-0.8); Eosinophils % 0.1 % (0.00-10.9); Hematocrit 32.8 VOL% (42.0-52.0); Hemoglobin 10.1 GM/DL (14.0-18.0); Immature Granulocytes % 6.7 %; Immature Granulocytes Absolute 0.97 #; Lymphocytes # 1.1 10*3/uL (1.4-4.0); Lymphocytes % 7.4 % (21.2-54.2); Mean Corpuscular HGB Conc 30.8 GM/DL (32-36); Mean Corpuscular Hemoglobin 26 PG (27-34); Mean Corpuscular Volume 83.7 FL (87-102); Mean Platelet Volume 11.9 FL (9.6-12.0); Monocytes # 1.3 10*3/uL (0.11-0.8); Neutrophils # 11.1 10*3/uL (1.4-7.4); Neutrophils % 76.6 % (38.7-73.9); Platelet Count 238 T/CUMM (130-400); Red Blood Count 3.92 MC/CUMM (3.8-5.5); Red Cell Distribution Width 15.7 % (9.3-17.3); White Blood Count 14.5 T/CUMM (4-12)
[2018-08-13 05:13] LABS: Calcium 8.1 MG/DL (8.5-10.1)
[2018-08-13 05:29] LABS: Hypochromasia 1+; Lymphocytes 6 % (20-55); Myelocytes 1 %; Ovalocytes Slight; Platelet Estimate Adequate; Segmented Neutrophils 86 % (50-85); Total Cells Counted 100
[2018-08-13] MEDS: BUDESONIDE 0.25 MG/2 ML NEB RESP TX SCH (07:22)
[2018-08-13] MEDS: MAGNESIUM OXIDE 400 MG TABLET PO SCH (08:53)
[2018-08-13] MEDS: DOCUSATE SODIUM 100 MG CAPSULE PO SCH (08:53)
[2018-08-13] MEDS: amLODIPine 5 MG TABLET PO SCH (08:54)
[2018-08-13] MEDS: guaiFENesin/DM ER 600-30 MG TABLET PO SCH (08:54)
[2018-08-13] MEDS: TAMSULOSIN 0.4 MG CAPSULE PO SCH (08:54)
[2018-08-13] MEDS: ASPIRIN CHEW 81 MG TABLET PO SCH (08:54)
[2018-08-13] MEDS: POTASSIUM CHLORIDE 20 MEQ TABLET PO SCH (08:54)
[2018-08-13] MEDS: methylPREDNISolone SOD SUC 40 MG/1 ML VIAL IV SCH (08:55)
[2018-08-13] MEDS: ALPRAZolam 0.5 MG TABLET PO SCH ×2 (08:55→11:39)
[2018-08-13] MEDS: FUROSEMIDE 20 MG/2 ML VIAL IV SCH (08:56)
[2018-08-13] MEDS: SKIN HEALING OINT (AQUAPHOR) 50 GM TUBE TOP SCH (08:59)
[2018-08-13] MEDS: buPROPion SR 150 MG TABLET PO SCH (09:00)
[2018-08-13 15:38] VITALS: BP 128/68
== END 2018-08-13 15:00 | DRG 193 ==
LOC: EDUNIT# → N.ED 17:38 → N.EDINP 20:12 → N.ICU 21:20 → N.2E 08-10 14:10
PROVIDERS: ADMIT Internal Medicine; ATTEND Internal Medicine

== ENCOUNTER 2018-12-13 19:03 | Inpatient (IN) ==
[2018-12-13] MEDS ORDERED: KETOROLAC 10 MG TABLET PO STA (20:13)
[2018-12-13 20:31] LABS: Basophils % 0.2 % (0.0-0.8); Eosinophils % 0.1 % (0.00-10.9); Immature Granulocytes % 5.2 %; Immature Granulocytes Absolute 1.14 #; Lymphocytes # 3.2 10*3/uL (1.4-4.0); Lymphocytes % 14.8 % (21.2-54.2); Mean Corpuscular HGB Conc 29.8 GM/DL (32-36); Mean Corpuscular Volume 89.4 FL (87-102); Mean Platelet Volume 10.6 FL (9.6-12.0); Monocytes % 21.1 % (1.7-12.7); NRBC # 0.43 10*3/uL; Neutrophils % 58.6 % (38.7-73.9); Platelet Count 322 T/CUMM (130-400); Red Blood Count 1.88 MC/CUMM (3.8-5.5); Red Cell Distribution Width 18.4 % (9.3-17.3); White Blood Count 21.8 T/CUMM (4-12)
[2018-12-13 20:36] LABS: Hematocrit 16.8 VOL% (42.0-52.0)
[2018-12-13 20:55] LABS: PT Patient Result 10.4 SECS
[2018-12-13 21:04] LABS: Band Neutrophils 1 % (0-10); Lymphocytes 24 % (20-55); Segmented Neutrophils 65 % (50-85); Total Cells Counted 100
[2018-12-13 21:05] LABS: Calcium 8.3 MG/DL (8.5-10.1); Osmolality,Calculated 288.5 MOS/KG (273-304); Platelet Estimate Normal
[2018-12-13 21:06] LABS: Microcytosis Slight; Polychromasia Slight
[2018-12-13] MEDS ORDERED: ONDANSETRON 4 MG/2 ML VIAL IV PRN (22:19)
[2018-12-13] MEDS ORDERED: SODIUM CHLORIDE 0.9% 1,000 ML IV PRN (22:23)
[2018-12-14] MEDS: ALPRAZolam 0.5 MG TABLET PO SCH ×2 (08:11→20:26)
[2018-12-14] MEDS: PANTOPRAZOLE 40 MG TABLET PO SCH (08:11)
[2018-12-14] MEDS: DOCUSATE SODIUM 100 MG CAPSULE PO SCH ×2 (08:11→20:26)
[2018-12-14 12:41] LABS: Calcium 7.9 MG/DL (8.5-10.1); Osmolality,Calculated 292.1 MOS/KG (273-304)
[2018-12-14 13:25] LABS: Basophils # 0.1 10*3/uL (0.0-0.2); Basophils % 0.4 % (0.0-0.8); Eosinophils % 0.1 % (0.00-10.9); Hematocrit 27.6 VOL% (42.0-52.0); Hemoglobin 8.7 GM/DL (14.0-18.0); Immature Granulocytes % 5.9 %; Immature Granulocytes Absolute 1.12 #; Lymphocytes # 2.6 10*3/uL (1.4-4.0); Lymphocytes % 13.6 % (21.2-54.2); Mean Corpuscular HGB Conc 31.5 GM/DL (32-36); Mean Corpuscular Volume 91.4 FL (87-102); Mean Platelet Volume 10.7 FL (9.6-12.0); Monocytes % 18.8 % (1.7-12.7); NRBC # 0.25 10*3/uL; Neutrophils % 61.2 % (38.7-73.9); Platelet Count 262 T/CUMM (130-400); Red Blood Count 3.02 MC/CUMM (3.8-5.5); Red Cell Distribution Width 17.2 % (9.3-17.3)
[2018-12-14 13:59] LABS: Hypochromasia 1+; Lymphocytes 14 % (20-55); Platelet Estimate Adequate; Polychromasia 1+; Segmented Neutrophils 73 % (50-85); Tear Drop Cells 1+; Total Cells Counted 100
[2018-12-14 14:00] LABS: Acanthocytes Few; Helmet Cells Few; Macrocytosis Slight; Microcytosis 1+
[2018-12-14] MEDS ORDERED: ALPRAZolam 0.25 MG TABLET ONE (18:20)
[2018-12-14] MEDS: ALPRAZolam 0.25 MG TABLET PO SCH (18:22)
[2018-12-14] MEDS ORDERED: traZODone 50 MG TABLET PO PRN (20:29)
[2018-12-14] MEDS ORDERED: MAGNESIUM HYDROXIDE SUSP 30 ML UDCUP PO PRN (20:29)
[2018-12-14] MEDS: DONEPEZIL 5 MG TABLET PO SCH (20:50)
[2018-12-14] MEDS: TAMSULOSIN 0.4 MG CAPSULE PO SCH (20:50)
[2018-12-14] MEDS: buPROPion SR 150 MG TABLET PO SCH (20:51)
[2018-12-14] MEDS ORDERED: DOCUSATE SODIUM 100 MG CAPSULE PO SCH (21:00)
[2018-12-14] MEDS ORDERED: LATANOPROST 0.005% OPH SOLN 2.5 ML BOTTLE RIGHT EYE SCH (21:00)
[2018-12-14] MEDS: LATANOPROST 0.005% OPH SOLN 2.5 ML BOTTLE BOTH EYES SCH (21:47)
[2018-12-14] MEDS: BUDESONIDE/FORMOTEROL 160-4.5 INHALER 6 GM INH SCH (21:47)
[2018-12-14] MEDS: IPRATROPIUM 500 MCG/2.5 ML NEB RESP TX SCH (23:10)
[2018-12-15 04:59] LABS: Basophils % 0.2 % (0.0-0.8); Eosinophils % 0.2 % (0.00-10.9); Hematocrit 27.3 VOL% (42.0-52.0); Hemoglobin 8.8 GM/DL (14.0-18.0); Immature Granulocytes % 4.5 %; Immature Granulocytes Absolute 0.75 #; Lymphocytes # 2.3 10*3/uL (1.4-4.0); Lymphocytes % 13.5 % (21.2-54.2); Mean Corpuscular HGB Conc 32.2 GM/DL (32-36); Mean Corpuscular Volume 90.7 FL (87-102); Mean Platelet Volume 10.8 FL (9.6-12.0); Monocytes % 22.9 % (1.7-12.7); NRBC # 0.13 10*3/uL; Neutrophils % 58.7 % (38.7-73.9); Platelet Count 254 T/CUMM (130-400); Red Blood Count 3.01 MC/CUMM (3.8-5.5); Red Cell Distribution Width 17.7 % (9.3-17.3); White Blood Count 16.8 T/CUMM (4-12)
[2018-12-15 05:25] LABS: Hypochromasia 1+; Lymphocytes 13 % (20-55); Nucleated Red Blood Cells 1 (0-5); Platelet Estimate Adequate; Segmented Neutrophils 65 % (50-85); Total Cells Counted 100
[2018-12-15 05:26] LABS: Microcytosis 1+
[2018-12-15 05:41] LABS: Alanine Aminotransferase < 9 U/L (16-61); Albumin 2.5 G/DL (3.4-5.0); Alkaline Phosphatase 61 U/L (45-117); Aspartate Amino Transferase 9 U/L (0-37); Blood Urea Nitrogen 24 MG/DL (7-18); Calcium 7.7 MG/DL (8.5-10.1); Glucose 93 MG/DL (74-106); Osmolality,Calculated 286.1 MOS/KG (273-304); Total Protein 5.6 G/DL (6.4-8.3)
[2018-12-15] MEDS ORDERED: IPRATROPIUM 500 MCG/2.5 ML NEB RESP TX SCH (07:00)
[2018-12-15] MEDS: IPRATROPIUM 500 MCG/2.5 ML NEB RESP TX SCH ×3 (07:10→23:16)
[2018-12-15] MEDS: ALPRAZolam 0.5 MG TABLET PO SCH ×2 (08:21→20:16)
[2018-12-15] MEDS: FERROUS SULFATE 325 MG TABLET PO SCH (08:21)
[2018-12-15] MEDS: buPROPion SR 150 MG TABLET PO SCH ×2 (08:21→20:16)
[2018-12-15] MEDS: PANTOPRAZOLE 40 MG TABLET PO SCH (08:22)
[2018-12-15] MEDS: DOCUSATE SODIUM 100 MG CAPSULE PO SCH ×2 (08:22→20:16)
[2018-12-15] MEDS: TAMSULOSIN 0.4 MG CAPSULE PO SCH ×2 (08:22→20:16)
[2018-12-15] MEDS: SKIN HEALING OINT (AQUAPHOR) 50 GM TUBE TOP SCH (08:24)
[2018-12-15] MEDS: BUDESONIDE/FORMOTEROL 160-4.5 INHALER 6 GM INH SCH ×2 (08:24→20:16)
[2018-12-15] MEDS ORDERED: ASPIRIN CHEW 81 MG TABLET PO SCH (09:00)
[2018-12-15] MEDS ORDERED: ALPRAZolam 0.25 MG TABLET ONE (12:53)
[2018-12-15] MEDS: ALPRAZolam 0.25 MG TABLET PO SCH ×2 (13:05→17:32)
[2018-12-15] MEDS ORDERED: FUROSEMIDE 40 MG/4 ML VIAL IV ONE (19:00)
[2018-12-15] MEDS ORDERED: POTASSIUM CHLORIDE 20 MEQ TABLET PO ONE (19:00)
[2018-12-15] MEDS: LATANOPROST 0.005% OPH SOLN 2.5 ML BOTTLE BOTH EYES SCH (20:16)
[2018-12-15] MEDS: DONEPEZIL 5 MG TABLET PO SCH (20:16)
[2018-12-16 06:00] LABS: Basophils # 0.1 10*3/uL (0.0-0.2); Basophils % 0.3 % (0.0-0.8); Eosinophils % 0.1 % (0.00-10.9); Hematocrit 28.4 VOL% (42.0-52.0); Hemoglobin 8.9 GM/DL (14.0-18.0); Immature Granulocytes % 4.9 %; Immature Granulocytes Absolute 1.01 #; Lymphocytes # 2.1 10*3/uL (1.4-4.0); Lymphocytes % 10.4 % (21.2-54.2); Mean Corpuscular HGB Conc 31.3 GM/DL (32-36); Mean Corpuscular Volume 90.7 FL (87-102); Mean Platelet Volume 10.8 FL (9.6-12.0); Monocytes % 19.9 % (1.7-12.7); NRBC # 0.06 10*3/uL; Neutrophils % 64.4 % (38.7-73.9); Platelet Count 244 T/CUMM (130-400); Red Blood Count 3.13 MC/CUMM (3.8-5.5); Red Cell Distribution Width 18.4 % (9.3-17.3); White Blood Count 20.5 T/CUMM (4-12)
[2018-12-16 06:18] LABS: Eosinophils 1 % (0-10); Lymphocytes 11 % (20-55); Nucleated Red Blood Cells 1 (0-5); Segmented Neutrophils 77 % (50-85); Total Cells Counted 100
[2018-12-16 06:19] LABS: Hypochromasia 1+; Microcytosis 1+; Platelet Estimate Adequate
[2018-12-16 06:26] LABS: Osmolality,Calculated 284.3 MOS/KG (273-304)
[2018-12-16] MEDS: IPRATROPIUM 500 MCG/2.5 ML NEB RESP TX SCH ×3 (07:14→23:38)
[2018-12-16] MEDS ORDERED: LACTATED RINGERS 1,000 ML IV SCH (08:00)
[2018-12-16] MEDS ORDERED: PHENYLEPHRINE 1 MG/10 ML SYRINGE IV ONE (09:00)
[2018-12-16] MEDS ORDERED: PROPOFOL 200 MG/20 ML VIAL IV ONE (09:00)
[2018-12-16] MEDS ORDERED: LIDOCAINE 2% 5 ML VIAL ONE (09:00)
[2018-12-16] MEDS: buPROPion SR 150 MG TABLET PO SCH ×2 (10:42→21:42)
[2018-12-16] MEDS: ALPRAZolam 0.5 MG TABLET PO SCH ×2 (10:42→21:38)
[2018-12-16] MEDS ORDERED: BISACODYL 5 MG TABLET PO ONE (12:00)
[2018-12-16] MEDS: SKIN HEALING OINT (AQUAPHOR) 50 GM TUBE TOP SCH (14:17)
[2018-12-16] MEDS: FERROUS SULFATE 325 MG TABLET PO SCH (14:18)
[2018-12-16] MEDS: DOCUSATE SODIUM 100 MG CAPSULE PO SCH ×2 (14:18→21:38)
[2018-12-16] MEDS: TAMSULOSIN 0.4 MG CAPSULE PO SCH ×2 (14:18→21:38)
[2018-12-16] MEDS: PANTOPRAZOLE 40 MG TABLET PO SCH (14:18)
[2018-12-16] MEDS: POTASSIUM CHLORIDE 20 MEQ TABLET PO SCH (14:19)
[2018-12-16] MEDS: FUROSEMIDE 40 MG/4 ML VIAL IV SCH (14:19)
[2018-12-16] MEDS: BUDESONIDE/FORMOTEROL 160-4.5 INHALER 6 GM INH SCH ×2 (14:23→21:50)
[2018-12-16] MEDS: ALPRAZolam 0.25 MG TABLET PO SCH (14:23)
[2018-12-16] MEDS ORDERED: POLYETHYLENE GLYCOL POWDER 255 GM BOTTLE PO ONE (15:00)
[2018-12-16] MEDS: ACETAMINOPHEN 325 MG TABLET PO PRN (19:55)
[2018-12-16] MEDS ORDERED: CYANOCOBALAMIN 1000 MCG/1 ML VIAL IM ONE (21:00)
[2018-12-16] MEDS: DONEPEZIL 5 MG TABLET PO SCH (21:38)
[2018-12-16] MEDS: LATANOPROST 0.005% OPH SOLN 2.5 ML BOTTLE BOTH EYES SCH (21:50)
[2018-12-16] MEDS: NYSTATIN 500,000 UNIT/5 ML UDCUP SWISH/SWAL SCH (22:04)
[2018-12-17 05:53] LABS: Osmolality,Calculated 281.4 MOS/KG (273-304)
[2018-12-17 06:19] LABS: Basophils % 0.3 % (0.0-0.8); Eosinophils % 0.1 % (0.00-10.9); Hematocrit 28.5 VOL% (42.0-52.0); Hemoglobin 8.5 GM/DL (14.0-18.0); Immature Granulocytes % 2.5 %; Immature Granulocytes Absolute 0.39 #; Lymphocytes # 2.2 10*3/uL (1.4-4.0); Lymphocytes % 13.6 % (21.2-54.2); Mean Corpuscular HGB Conc 29.8 GM/DL (32-36); Mean Corpuscular Volume 93.4 FL (87-102); Mean Platelet Volume 12.3 FL (9.6-12.0); Monocytes % 20.2 % (1.7-12.7); NRBC # 0.02 10*3/uL; Neutrophils % 63.3 % (38.7-73.9); Platelet Count 139 T/CUMM (130-400); Red Blood Count 3.05 MC/CUMM (3.8-5.5); Red Cell Distribution Width 18.5 % (9.3-17.3); White Blood Count 15.8 T/CUMM (4-12)
[2018-12-17 06:29] LABS: PT Patient Result 10.4 SECS
[2018-12-17 06:41] LABS: Lymphocytes 13 % (20-55); Segmented Neutrophils 73 % (50-85); Total Cells Counted 100
[2018-12-17 06:42] LABS: Hypochromasia 1+; Microcytosis 1+; Platelet Estimate Normal
[2018-12-17] MEDS: IPRATROPIUM 500 MCG/2.5 ML NEB RESP TX SCH ×2 (07:18→14:51)
[2018-12-17] MEDS ORDERED: LACTATED RINGERS 1,000 ML IV SCH (08:00)
[2018-12-17] MEDS: ALPRAZolam 0.5 MG TABLET PO SCH ×2 (08:10→21:30)
[2018-12-17] MEDS: TAMSULOSIN 0.4 MG CAPSULE PO SCH ×2 (09:30→21:30)
[2018-12-17] MEDS: buPROPion SR 150 MG TABLET PO SCH ×2 (09:31→21:30)
[2018-12-17] MEDS: SKIN HEALING OINT (AQUAPHOR) 50 GM TUBE TOP SCH (09:31)
[2018-12-17] MEDS: FUROSEMIDE 40 MG/4 ML VIAL IV SCH (09:31)
[2018-12-17] MEDS: NYSTATIN 500,000 UNIT/5 ML UDCUP SWISH/SWAL SCH ×4 (09:31→21:30)
[2018-12-17] MEDS: PANTOPRAZOLE 40 MG TABLET PO SCH (09:31)
[2018-12-17] MEDS: POTASSIUM CHLORIDE 20 MEQ TABLET PO SCH (09:31)
[2018-12-17] MEDS: DOCUSATE SODIUM 100 MG CAPSULE PO SCH ×2 (09:31→21:30)
[2018-12-17] MEDS: FERROUS SULFATE 325 MG TABLET PO SCH (09:31)
[2018-12-17] MEDS: BUDESONIDE/FORMOTEROL 160-4.5 INHALER 6 GM INH SCH ×2 (11:20→23:28)
[2018-12-17] MEDS: ALPRAZolam 0.25 MG TABLET PO SCH (12:10)
[2018-12-17] MEDS: DONEPEZIL 5 MG TABLET PO SCH (21:30)
[2018-12-17] MEDS: LATANOPROST 0.005% OPH SOLN 2.5 ML BOTTLE BOTH EYES SCH (23:28)
[2018-12-18] MEDS: IPRATROPIUM 500 MCG/2.5 ML NEB RESP TX SCH ×4 (00:20→23:44)
[2018-12-18] MEDS: ACETAMINOPHEN 325 MG TABLET PO PRN (02:50)
[2018-12-18 07:17] LABS: Basophils % 0.1 % (0.0-0.8); Eosinophils % 0.1 % (0.00-10.9); Hematocrit 28.1 VOL% (42.0-52.0); Hemoglobin 8.4 GM/DL (14.0-18.0); Immature Granulocytes Absolute 0.42 #; Lymphocytes # 2.1 10*3/uL (1.4-4.0); Lymphocytes % 14.5 % (21.2-54.2); Mean Corpuscular HGB Conc 29.9 GM/DL (32-36); Mean Corpuscular Volume 94.3 FL (87-102); Monocytes % 20.4 % (1.7-12.7); NRBC # 0.02 10*3/uL; Neutrophils % 61.9 % (38.7-73.9); Platelet Count 198 T/CUMM (130-400); Red Blood Count 2.98 MC/CUMM (3.8-5.5); Red Cell Distribution Width 18.3 % (9.3-17.3); White Blood Count 14.2 T/CUMM (4-12)
[2018-12-18 07:35] LABS: Alanine Aminotransferase < 9 U/L (16-61); Albumin 2.6 G/DL (3.4-5.0); Alkaline Phosphatase 69 U/L (45-117); Aspartate Amino Transferase 7 U/L (0-37); Blood Urea Nitrogen 20 MG/DL (7-18); Calcium 8.1 MG/DL (8.5-10.1); Glucose 100 MG/DL (74-106); Osmolality,Calculated 275.8 MOS/KG (273-304)
[2018-12-18 07:38] LABS: Hypochromasia 1+; Lymphocytes 17 % (20-55); Microcytosis 1+; Segmented Neutrophils 69 % (50-85); Total Cells Counted 100
[2018-12-18 07:39] LABS: Ovalocytes Slight; Platelet Estimate Adequate; Polychromasia Slight
[2018-12-18] MEDS ORDERED: LIDOCAINE 100 MG/5 ML SYRINGE ONE (09:00)
[2018-12-18] MEDS ORDERED: PROPOFOL 200 MG/20 ML VIAL IV ONE (09:00)
[2018-12-18] MEDS: PANTOPRAZOLE 40 MG TABLET PO SCH (10:10)
[2018-12-18] MEDS: TAMSULOSIN 0.4 MG CAPSULE PO SCH ×2 (10:10→20:29)
[2018-12-18] MEDS: buPROPion SR 150 MG TABLET PO SCH ×2 (10:10→20:29)
[2018-12-18] MEDS: POTASSIUM CHLORIDE 20 MEQ TABLET PO SCH (10:10)
[2018-12-18] MEDS: ALPRAZolam 0.5 MG TABLET PO SCH ×2 (10:10→20:29)
[2018-12-18] MEDS: NYSTATIN 500,000 UNIT/5 ML UDCUP SWISH/SWAL SCH ×4 (10:11→20:29)
[2018-12-18] MEDS: DOCUSATE SODIUM 100 MG CAPSULE PO SCH ×2 (10:11→20:29)
[2018-12-18] MEDS: FERROUS SULFATE 325 MG TABLET PO SCH (10:11)
[2018-12-18] MEDS: FUROSEMIDE 40 MG/4 ML VIAL IV SCH (10:12)
[2018-12-18] MEDS: BUDESONIDE/FORMOTEROL 160-4.5 INHALER 6 GM INH SCH ×2 (10:18→20:29)
[2018-12-18] MEDS: SKIN HEALING OINT (AQUAPHOR) 50 GM TUBE TOP SCH (10:50)
[2018-12-18] MEDS: ALPRAZolam 0.25 MG TABLET PO SCH (12:47)
[2018-12-18] MEDS: DONEPEZIL 5 MG TABLET PO SCH (20:29)
[2018-12-18] MEDS: LATANOPROST 0.005% OPH SOLN 2.5 ML BOTTLE BOTH EYES SCH (20:30)
[2018-12-19] MEDS: IPRATROPIUM 500 MCG/2.5 ML NEB RESP TX SCH ×2 (08:34→16:05)
[2018-12-19] MEDS: PANTOPRAZOLE 40 MG TABLET PO SCH (09:08)
[2018-12-19] MEDS: buPROPion SR 150 MG TABLET PO SCH ×2 (09:08→21:28)
[2018-12-19] MEDS: DOCUSATE SODIUM 100 MG CAPSULE PO SCH ×2 (09:08→21:28)
[2018-12-19] MEDS: POTASSIUM CHLORIDE 20 MEQ TABLET PO SCH (09:08)
[2018-12-19] MEDS: FERROUS SULFATE 325 MG TABLET PO SCH (09:09)
[2018-12-19] MEDS: NYSTATIN 500,000 UNIT/5 ML UDCUP SWISH/SWAL SCH ×4 (09:09→21:28)
[2018-12-19] MEDS: SKIN HEALING OINT (AQUAPHOR) 50 GM TUBE TOP SCH (09:09)
[2018-12-19] MEDS: TAMSULOSIN 0.4 MG CAPSULE PO SCH ×2 (09:09→21:28)
[2018-12-19] MEDS: FUROSEMIDE 40 MG/4 ML VIAL IV SCH (09:12)
[2018-12-19] MEDS: ALPRAZolam 0.5 MG TABLET PO SCH ×2 (09:13→21:28)
[2018-12-19] MEDS: BUDESONIDE/FORMOTEROL 160-4.5 INHALER 6 GM INH SCH ×2 (09:13→21:28)
[2018-12-19] MEDS: ALPRAZolam 0.25 MG TABLET PO SCH (12:20)
[2018-12-19] MEDS: DONEPEZIL 5 MG TABLET PO SCH (21:28)
[2018-12-19] MEDS: LATANOPROST 0.005% OPH SOLN 2.5 ML BOTTLE BOTH EYES SCH (21:28)
[2018-12-20] MEDS: IPRATROPIUM 500 MCG/2.5 ML NEB RESP TX SCH ×4 (00:18→23:07)
[2018-12-20 04:29] LABS: Basophils % 0.2 % (0.0-0.8); Eosinophils % 0.1 % (0.00-10.9); Hemoglobin 7.5 GM/DL (14.0-18.0); Immature Granulocytes % 1.9 %; Immature Granulocytes Absolute 0.19 #; Lymphocytes # 1.9 10*3/uL (1.4-4.0); Lymphocytes % 18.7 % (21.2-54.2); Mean Corpuscular Volume 92.3 FL (87-102); Mean Platelet Volume 11.1 FL (9.6-12.0); Monocytes % 20.2 % (1.7-12.7); Neutrophils % 58.9 % (38.7-73.9); Platelet Count 200 T/CUMM (130-400); Red Blood Count 2.71 MC/CUMM (3.8-5.5); Red Cell Distribution Width 18.4 % (9.3-17.3); White Blood Count 10.1 T/CUMM (4-12)
[2018-12-20 04:51] LABS: Lymphocytes 18 % (20-55); Segmented Neutrophils 65 % (50-85); Total Cells Counted 100
[2018-12-20 04:52] LABS: Reactive Lymphocytes Few
[2018-12-20 04:53] LABS: Hypochromasia 1+; Ovalocytes 1+; Platelet Estimate Normal
[2018-12-20] MEDS: ALPRAZolam 0.5 MG TABLET PO SCH ×2 (08:45→21:24)
[2018-12-20] MEDS: FERROUS SULFATE 325 MG TABLET PO SCH (08:46)
[2018-12-20] MEDS: TAMSULOSIN 0.4 MG CAPSULE PO SCH ×2 (08:46→21:23)
[2018-12-20] MEDS: PANTOPRAZOLE 40 MG TABLET PO SCH (08:46)
[2018-12-20] MEDS: FUROSEMIDE 40 MG/4 ML VIAL IV SCH (08:46)
[2018-12-20] MEDS: POTASSIUM CHLORIDE 20 MEQ TABLET PO SCH (08:46)
[2018-12-20] MEDS: DOCUSATE SODIUM 100 MG CAPSULE PO SCH ×2 (08:46→21:24)
[2018-12-20] MEDS: NYSTATIN 500,000 UNIT/5 ML UDCUP SWISH/SWAL SCH ×4 (08:46→21:24)
[2018-12-20] MEDS: BUDESONIDE/FORMOTEROL 160-4.5 INHALER 6 GM INH SCH ×2 (08:47→21:24)
[2018-12-20] MEDS: SKIN HEALING OINT (AQUAPHOR) 50 GM TUBE TOP SCH (08:47)
[2018-12-20] MEDS: buPROPion SR 150 MG TABLET PO SCH ×2 (09:08→21:23)
[2018-12-20] MEDS: ALPRAZolam 0.25 MG TABLET PO SCH (12:55)
[2018-12-20] MEDS: DONEPEZIL 5 MG TABLET PO SCH (21:24)
[2018-12-20] MEDS: LATANOPROST 0.005% OPH SOLN 2.5 ML BOTTLE BOTH EYES SCH (21:24)
[2018-12-21] MEDS: IPRATROPIUM 500 MCG/2.5 ML NEB RESP TX SCH (07:04)
[2018-12-21 07:53] VITALS: BP 124/79
[2018-12-21] MEDS: DOCUSATE SODIUM 100 MG CAPSULE PO SCH (08:12)
[2018-12-21] MEDS: SKIN HEALING OINT (AQUAPHOR) 50 GM TUBE TOP SCH (08:12)
[2018-12-21] MEDS: TAMSULOSIN 0.4 MG CAPSULE PO SCH (08:13)
[2018-12-21] MEDS: POTASSIUM CHLORIDE 20 MEQ TABLET PO SCH (08:13)
[2018-12-21] MEDS: FUROSEMIDE 40 MG/4 ML VIAL IV SCH (08:13)
[2018-12-21] MEDS: FERROUS SULFATE 325 MG TABLET PO SCH (08:13)
[2018-12-21] MEDS: buPROPion SR 150 MG TABLET PO SCH (08:14)
[2018-12-21] MEDS: NYSTATIN 500,000 UNIT/5 ML UDCUP SWISH/SWAL SCH (08:14)
[2018-12-21] MEDS: BUDESONIDE/FORMOTEROL 160-4.5 INHALER 6 GM INH SCH (08:14)
[2018-12-21] MEDS: PANTOPRAZOLE 40 MG TABLET PO SCH (08:14)
[2018-12-21] MEDS: ALPRAZolam 0.5 MG TABLET PO SCH (08:15)
== END 2018-12-21 12:05 | DRG 812 ==
LOC: EDUNIT# → EDBD → N.ED 19:03 → N.EDINP 22:19 → N.TELES 23:16 → N.TELEN 12-18 11:01
PROVIDERS: ADMIT Internal Medicine; ATTEND Internal Medicine

== ENCOUNTER 2019-10-30 20:30 | Inpatient (IN) ==
[2019-10-30 21:51] LABS: Basophils # 0.1 10*3/uL (0.0-0.2); Basophils % 0.3 % (0.0-0.8); Hematocrit 30.9 VOL% (42.0-52.0); Hemoglobin 9.2 GM/DL (14.0-18.0); Immature Granulocytes % 4.4 %; Immature Granulocytes Absolute 1.44 #; Lymphocytes # 0.4 10*3/uL (1.4-4.0); Lymphocytes % 1.3 % (21.2-54.2); Mean Corpuscular HGB Conc 29.8 GM/DL (32-36); Mean Corpuscular Volume 83.7 FL (87-102); Mean Platelet Volume 11.5 FL (9.6-12.0); Monocytes % 14.9 % (1.7-12.7); Neutrophils % 79.1 % (38.7-73.9); Platelet Count 216 T/CUMM (130-400); Red Blood Count 3.69 MC/CUMM (3.8-5.5); Red Cell Distribution Width 15.6 % (9.3-17.3); White Blood Count 33.1 T/CUMM (4-12)
[2019-10-30 22:09] LABS: Alanine Aminotransferase < 6 U/L (16-61); Albumin 1.9 G/DL (3.4-5.0); Alkaline Phosphatase 75 U/L (45-117); Aspartate Amino Transferase 14 U/L (0-37); Blood Urea Nitrogen 23 MG/DL (7-18); Calcium 8.1 MG/DL (8.5-10.1); Estimated Glom Filtration Rate 110 ML/MIN; Glucose 121 MG/DL (74-106); Osmolality,Calculated 281.5 MOS/KG (273-304); Total Protein 5.6 G/DL (6.4-8.3)
[2019-10-30 22:16] LABS: Segmented Neutrophils 91 % (50-85); Total Cells Counted 100
[2019-10-30 22:17] LABS: Microcytosis Slight
[2019-10-30 22:18] LABS: Hypochromasia 2+; Platelet Estimate Normal; Polychromasia 1+
[2019-10-30 22:19] LABS: Anisocytosis 2+; Poikilocytosis 1+
[2019-10-30] MEDS ORDERED: cefTRIAXone 1,000 MG in SODIUM CHLORIDE 0.9% 100 ML IV STA (22:22)
[2019-10-30] MEDS ORDERED: LEVOFLOXACIN INJ 500 MG in PREMIX 1 EACH IV STA (22:22)
[2019-10-30 23:30] LABS: Apearance,Urine Slightly Hazy (Clear); Bilirubin,Urine Negative (Negative); Blood, Urine Negative (Negative); Glucose,Urine (UA) Negative (Negative); Hyaline Casts,Urine 48 /LPF (0-3); Ketones,Urine Negative (Negative); Mucus,Urine Many /LPF (Occasional); Nitrite,Urine Negative (Negative); Protein,Urine 30 MG/DL; RBC,Urine 5 /HPF (0-4); Urine Color Amber (Yellow); Urine Specific Gravity 1.021 (1.001-1.035); Urine Urobilinogen < 2.0 EU/DL (0.2-1.0); WBC,Urine 2 /HPF (0-6)
[2019-10-31 00:53] LABS: Ferritin 278.7 ng/ml (26-388)
[2019-10-31] MEDS ORDERED: ZALEPLON 5 MG CAPSULE PO PRN (01:51)
[2019-10-31] MEDS ORDERED: ACETAMINOPHEN 325 MG TABLET PO PRN (01:51)
[2019-10-31] MEDS ORDERED: ONDANSETRON 4 MG/2 ML VIAL IV PRN (01:51)
[2019-10-31] MEDS ORDERED: ALBUTEROL/IPRATROPIUM 3 ML NEB RESP TX PRN (01:51)
[2019-10-31] MEDS ORDERED: CRAN VITC MANNOSE FOS BROMELN PO SCH (01:51)
[2019-10-31] MEDS ORDERED: MORPHINE 4 MG/1 ML VIAL IV PRN (01:51)
[2019-10-31] MEDS: DONEPEZIL 5 MG TABLET PO SCH ×2 (02:36→22:08)
[2019-10-31] MEDS: BUDESONIDE/FORMOTEROL 160-4.5 INHALER 6 GM INH SCH ×3 (02:36→22:06)
[2019-10-31] MEDS: LATANOPROST 0.005% OPH SOLN 2.5 ML BOTTLE BOTH EYES SCH ×2 (02:36→22:06)
[2019-10-31] MEDS: DOCUSATE SODIUM 100 MG CAPSULE PO SCH ×3 (02:36→22:06)
[2019-10-31] MEDS: ENOXAPARIN 40 MG/0.4 ML SYRINGE SUBCUT SCH (02:36)
[2019-10-31] MEDS: MAGNESIUM OXIDE 400 MG TABLET PO SCH ×3 (02:36→22:05)
[2019-10-31] MEDS: buPROPion SR 150 MG TABLET PO SCH ×3 (02:36→22:05)
[2019-10-31] MEDS: traZODone 50 MG TABLET PO SCH ×2 (02:37→22:05)
[2019-10-31] MEDS: fentaNYL 25 MCG/HR PATCH TRANSDERM SCH (02:38)
[2019-10-31] MEDS: ALPRAZolam 0.5 MG TABLET PO SCH ×3 (02:38→22:05)
[2019-10-31] MEDS: AZTREONAM 2,000 MG in SODIUM CHLORIDE 0.9% 100 ML IV SCH ×2 (02:39→09:21)
[2019-10-31] MEDS: VANCOMYCIN INJ 1,000 MG in SODIUM CHLORIDE 0.9% 250 ML IV SCH ×2 (04:17→16:55)
[2019-10-31 05:59] LABS: Basophils # 0.1 10*3/uL (0.0-0.2); Basophils % 0.2 % (0.0-0.8); Hemoglobin 7.8 GM/DL (14.0-18.0); Immature Granulocytes % 4.4 %; Immature Granulocytes Absolute 1.62 #; Lymphocytes # 0.8 10*3/uL (1.4-4.0); Mean Corpuscular Volume 83.9 FL (87-102); Mean Platelet Volume 11.6 FL (9.6-12.0); Monocytes % 15.4 % (1.7-12.7); Platelet Count 191 T/CUMM (130-400); Red Cell Distribution Width 15.6 % (9.3-17.3); White Blood Count 37.1 T/CUMM (4-12)
[2019-10-31 06:11] LABS: Calcium 7.9 MG/DL (8.5-10.1); Osmolality,Calculated 279.8 MOS/KG (273-304)
[2019-10-31] MEDS: IPRATROPIUM 500 MCG/2.5 ML NEB RESP TX SCH ×4 (07:33→19:42)
[2019-10-31 08:09] LABS: Band Neutrophils 6 % (0-10); Eosinophils 1 % (0-10); Platelet Estimate Normal; Segmented Neutrophils 77 % (50-85); Total Cells Counted 100
[2019-10-31 08:10] LABS: Anisocytosis 1+; Smudge Cells Few
[2019-10-31 08:11] LABS: Basophilic Stippling Slight
[2019-10-31] MEDS: SKIN HEALING OINT (AQUAPHOR) 50 GM TUBE TOP SCH (09:18)
[2019-10-31] MEDS: COLLAGENASE OINT 30 GM TUBE TOP SCH (09:18)
[2019-10-31] MEDS: PANTOPRAZOLE 40 MG TABLET PO SCH (09:19)
[2019-10-31] MEDS: ASPIRIN CHEW 81 MG TABLET PO SCH (09:19)
[2019-10-31] MEDS: TAMSULOSIN 0.4 MG CAPSULE PO SCH ×2 (09:19→22:06)
[2019-10-31] MEDS: FINASTERIDE 5 MG TABLET PO SCH (09:20)
[2019-10-31] MEDS: FERROUS SULFATE 325 MG TABLET PO SCH (09:20)
[2019-10-31] MEDS: SODIUM CHLORIDE 0.9% 1,000 ML IV SCH (10:05)
[2019-10-31] MEDS: amLODIPine 5 MG TABLET PO SCH (11:35)
[2019-10-31] MEDS: methylPREDNISolone SOD SUC 40 MG/1 ML VIAL IV SCH ×2 (12:05→17:40)
[2019-10-31] MEDS: ALPRAZolam 0.25 MG TABLET PO SCH ×2 (12:39→15:27)
[2019-11-01] MEDS: LEVOFLOXACIN INJ 750 MG in PREMIX 1 EACH IV SCH ×2 (00:09→20:23)
[2019-11-01] MEDS: ENOXAPARIN 40 MG/0.4 ML SYRINGE SUBCUT SCH (02:10)
[2019-11-01] MEDS: methylPREDNISolone SOD SUC 40 MG/1 ML VIAL IV SCH (02:10)
[2019-11-01] MEDS: VANCOMYCIN INJ 1,000 MG in SODIUM CHLORIDE 0.9% 250 ML IV SCH ×2 (04:06→16:05)
[2019-11-01 05:44] LABS: Basophils # 0.1 10*3/uL (0.0-0.2); Basophils % 0.3 % (0.0-0.8); Hematocrit 29.2 VOL% (42.0-52.0); Hemoglobin 8.8 GM/DL (14.0-18.0); Immature Granulocytes % 4.2 %; Immature Granulocytes Absolute 0.95 #; Lymphocytes # 0.5 10*3/uL (1.4-4.0); Mean Corpuscular HGB Conc 30.1 GM/DL (32-36); Mean Corpuscular Volume 82.3 FL (87-102); Mean Platelet Volume 11.8 FL (9.6-12.0); Monocytes % 7.2 % (1.7-12.7); Neutrophils % 86.3 % (38.7-73.9); Platelet Count 189 T/CUMM (130-400); Red Blood Count 3.55 MC/CUMM (3.8-5.5); Red Cell Distribution Width 15.7 % (9.3-17.3); White Blood Count 22.5 T/CUMM (4-12)
[2019-11-01 06:00] LABS: Calcium 7.9 MG/DL (8.5-10.1); Osmolality,Calculated 277.8 MOS/KG (273-304)
[2019-11-01 06:08] LABS: Hypochromasia 1+; Lymphocytes 1 % (20-55); Microcytosis Slight; Ovalocytes Slight; Platelet Estimate Adequate; Segmented Neutrophils 95 % (50-85); Total Cells Counted 100
[2019-11-01] MEDS: IPRATROPIUM 500 MCG/2.5 ML NEB RESP TX SCH (08:08)
[2019-11-01] MEDS: SKIN HEALING OINT (AQUAPHOR) 50 GM TUBE TOP SCH (08:15)
[2019-11-01] MEDS: BUDESONIDE/FORMOTEROL 160-4.5 INHALER 6 GM INH SCH ×2 (08:15→21:23)
[2019-11-01] MEDS: DOCUSATE SODIUM 100 MG CAPSULE PO SCH (08:41)
[2019-11-01] MEDS: SODIUM CHLORIDE 0.9% 1,000 ML IV SCH ×2 (08:41→11:20)
[2019-11-01] MEDS: ASPIRIN CHEW 81 MG TABLET PO SCH (08:41)
[2019-11-01] MEDS: PANTOPRAZOLE 40 MG TABLET PO SCH (08:42)
[2019-11-01] MEDS: amLODIPine 5 MG TABLET PO SCH (08:42)
[2019-11-01] MEDS: FINASTERIDE 5 MG TABLET PO SCH (08:42)
[2019-11-01] MEDS: buPROPion SR 150 MG TABLET PO SCH (08:42)
[2019-11-01] MEDS: TAMSULOSIN 0.4 MG CAPSULE PO SCH (08:42)
[2019-11-01] MEDS: FERROUS SULFATE 325 MG TABLET PO SCH (08:42)
[2019-11-01] MEDS: MAGNESIUM OXIDE 400 MG TABLET PO SCH (08:42)
[2019-11-01] MEDS: ALPRAZolam 0.5 MG TABLET PO SCH ×2 (08:43→20:25)
[2019-11-01] MEDS ORDERED: ERGOCALCIFEROL 50,000 UNIT CAPSULE PO SCH (09:00)
[2019-11-01] MEDS: COLLAGENASE OINT 30 GM TUBE TOP SCH (11:08)
[2019-11-01] MEDS: ALPRAZolam 0.25 MG TABLET PO SCH (11:19)
[2019-11-01] MEDS: SODIUM HYPOCHLORITE 0.25% IRRIG 473 ML BOTTLE TOP SCH (12:12)
[2019-11-01] MEDS: LORazepam 2 MG/1 ML VIAL IV PRN (21:21)
[2019-11-02] MEDS: VANCOMYCIN INJ 1,000 MG in SODIUM CHLORIDE 0.9% 250 ML IV SCH (04:09)
[2019-11-02] MEDS: SODIUM HYPOCHLORITE 0.25% IRRIG 473 ML BOTTLE TOP SCH (08:42)
[2019-11-02] MEDS: ALPRAZolam 0.5 MG TABLET PO SCH (08:42)
[2019-11-02] MEDS: ENOXAPARIN 40 MG/0.4 ML SYRINGE SUBCUT SCH (08:42)
[2019-11-02] MEDS: SKIN HEALING OINT (AQUAPHOR) 50 GM TUBE TOP SCH (08:42)
[2019-11-02] MEDS: BUDESONIDE/FORMOTEROL 160-4.5 INHALER 6 GM INH SCH (08:49)
[2019-11-02] MEDS: ALPRAZolam 0.25 MG TABLET PO SCH (13:56)
[2019-11-02] MEDS ORDERED: MORPHINE 4 MG/1 ML VIAL IV PRN (15:12)
[2019-11-02] MEDS ORDERED: MORPHINE PCA 30 MG/30 ML SYRINGE IV SCH (15:30)
[2019-11-02] MEDS: LORazepam 2 MG/1 ML VIAL IV PRN (16:25)
[2019-11-02] MEDS: MORPHINE IV SCH ×2 (16:25→19:40)
[2019-11-02] MEDS: SODIUM CHLORIDE 0.9% IV SCH ×2 (16:25→19:40)
[2019-11-03] MEDS: fentaNYL 25 MCG/HR PATCH TRANSDERM SCH (01:27)
[2019-11-03] MEDS: LORazepam 2 MG/1 ML VIAL IV PRN ×2 (01:35→06:00)
[2019-11-03] MEDS: SODIUM HYPOCHLORITE 0.25% IRRIG 473 ML BOTTLE TOP SCH (08:41)
[2019-11-03] MEDS: SKIN HEALING OINT (AQUAPHOR) 50 GM TUBE TOP SCH (08:41)
[2019-11-04] MEDS: LORazepam 2 MG/1 ML VIAL IV PRN ×2 (01:52→14:35)
[2019-11-04] MEDS: SODIUM CHLORIDE 0.9% IV SCH ×3 (01:57→20:03)
[2019-11-04] MEDS: MORPHINE IV SCH ×3 (01:57→20:03)
[2019-11-04] MEDS: SODIUM HYPOCHLORITE 0.25% IRRIG 473 ML BOTTLE TOP SCH (11:15)
[2019-11-04] MEDS: SKIN HEALING OINT (AQUAPHOR) 50 GM TUBE TOP SCH (11:15)
[2019-11-04] MEDS ORDERED: NALOXONE 0.4 MG/ML VIAL IV PRN (18:15)
[2019-11-04] MEDS ORDERED: MORPHINE PCA 30 MG/30 ML SYRINGE IV SCH (18:30)
[2019-11-04 20:13] VITALS: BP 101/73
== END 2019-11-04 23:47 | disposition expired | DRG 193 ==
LOC: EDBD → EDUNIT# → N.ED 20:30 → N.EDINP 23:42 → SUPCPDRO 23:42 → N.EDINP 10-31 01:10 → N.2E 10-31 01:44 → N.4E 11-02 10:00
PROVIDERS: ADMIT Internal Medicine; ATTEND Internal Medicine